=== PATIENT | female | born 1955 | race Caucasian/White ===

== ENCOUNTER → 2016-09-25 | Outpatient (CLI) | payer OTHER ==
--- NOTE | 2016-09-26 12:10 | MAMMOGRAPHY REPORT ---
BILATERAL DIGITAL SCREENING MAMMOGRAM TOMOSYNTHESIS WITH CAD: 09/25/2016 CLINICAL HISTORY: Routine screening. Patient has no complaints. TECHNIQUE: Breast tomosynthesis in addition to standard 2D mammography was performed. Current study was also evaluated with a Computer Aided Detection (CAD) system. COMPARISON: Comparison is made to exams dated: 09/21/2015 mammogram, 07/27/2014 mammogram, 07/21/2013 m ammogram, 07/15/2012 mammogram, 07/10/2011 mammogram, and 07/04/2010 mammogram - [facility] [place]. BREAST COMPOSITION: There are scattered areas of fibroglandular density in both breasts. FINDINGS: There are stable intramammary lymph nodes in each upper outer quadrant. No suspicious mas s, architectural distortion or cluster of microcalcifications is seen. IMPRESSION: ACR BI-RADS CATEGORY 1: NEGATIVE There is no mammographic evidence of malignancy. A 1 year screening mammogram is recommended. The pa tient will receive written notification of the results. Approximately 10% of breast cancers are not detected with mammography. A negative mammographic report should not delay biopsy if a clinically suggestive mass is present. Shanika Rollins M.D. ay/:09/25/2016 16:38:41 Visitor Services Specialist: Margarette LOPEZ(R)(M), [facility] letter sent: Normal 1/2 BI-RADS Code: ACR BI-RADS Category 1: Negative
== END | disposition home or self-care (01) ==
LOC: C.MAMM 15:52
PROVIDERS: ATTEND Obstetrics & Gynecology
DX: Z12.31 Encounter for screening mammogram for malignant neoplasm of breast (principal)

== ENCOUNTER → 2017-09-26 | Outpatient (CLI) | payer OTHER ==
--- NOTE | 2017-09-29 07:45 | MAMMOGRAPHY REPORT ---
BILATERAL DIGITAL SCREENING MAMMOGRAM TOMOSYNTHESIS WITH CAD: 09/26/2017 CLINICAL HISTORY: Routine screening. Patient has no complaints. TECHNIQUE: The study was acquired using full field digital technology and interpreted from soft copy. Breast tomosynthesis in addition to standard 2D mammography was performed. Current study was also ev aluated with a Computer Aided Detection (CAD) system. COMPARISON: Comparison is made to exams dated: 09/25/2016 mammogram, 09/21/2015 mammogram, 07/27/2014 m ammogram, 07/21/2013 mammogram, 07/15/2012 mammogram, and 07/10/2011 mammogram - [facility]. BREAST COMPOSITION: There are scattered areas of fibroglandular density in both breasts. FINDINGS: No suspicious masses, calcifications, or areas of architectural distortion are noted in either breast . There has been no significant interval change compared to prior exams. IMPRESSION: ACR BI-RADS CATEGORY 1: NEGATIVE There is no mammographic evidence of malignancy. A 1 year screening mammogram is recommended.( 019) The patient will receive written notification of the results. Some breast cancers are not detected with mammography. A negative mammographic report should not gurvinder y biopsy if a clinically suggestive mass is present. Gwen Robison M.D. ah/:09/26/2017 16:00:09 Department Store Door Greeter: RT Berenice(Marcos)(M)(BD), [facility] letter sent: Normal 1/2 BI-RADS Code: ACR BI-RADS Category 1: Negative
== END | disposition home or self-care (01) ==
LOC: C.MAMM 15:35
PROVIDERS: ATTEND Obstetrics & Gynecology
DX: Z12.31 Encounter for screening mammogram for malignant neoplasm of breast (principal)

== ENCOUNTER 2019-11-17 12:44 | Inpatient (IN) ==
[2019-11-17] MEDS ORDERED: ONDANSETRON INJ 2 MG/ML 2 ML VIAL IV STA ×2 (13:46→21:27)
--- NOTE | 2019-11-17 13:50 | Emergency Department Note ---
Impression & Plan RLQ abdominal pain, Right groin hernia, Nausea ED Provider Note NAME: PARISH JOSE AGE: 63 SEX: F : 1955 ARRIVES VIA: Walk-In INFORMANT: [Patient][, ] ED PROVIDER(S): [Leif Arreola MD] CHIEF COMPLAINT: Right lower quadrant abdominal pain HISTORY OF PRESENT ILLNESS: The patient is a 63-year-old female who presents with the sudden onset of right lower quadrant abdominal pain about 4 hours ago. She has had some nausea, no vomiting. She had a normal bowel movement this morning without difficulty. She has not had urinary complaints. There has been no fever, chills, cough or congestion. No known coronavirus exposures. She has not suffered trauma. She has never had this pain before. She rates the pain as an 8 on a scale 1 out of 10. The pain initially radiated to her back although, that is no longer the case. The pain is described as sharp and worse with movement. REVIEW OF SYSTEMS: See HPI for pertinent positives and negatives. A total of ten systems were reviewed and were otherwise negative. PMHx/PSHx: See Below SOCIAL HISTORY: See Below. PHYSICAL EXAM: GENERAL: Patient is in mild distress from pain. HEENT: No acute trauma, normocephalic atraumatic, mucous membranes moist, no nasal congestion, no scleral icterus. NECK: No stridor, no adenopathy, no meningismus, trachea is midline. LUNGS: Clear to auscultation bilaterally, no wheeze, no rhonchi, breath sounds equal. HEART: Without murmurs gallops or rubs, regular rate and rhythm. ABDOMEN: Soft, moderately tender in the right lower quadrant, bowel sounds posit mike, she has a 3 to 4 cm fullness in the right inguinal region which is quite tender and possibly consistent with a hernia. EXTREMITIES: No cyanosis or edema, full range of motion of all the joints wi thout pain or difficulty, no signs for acute trauma. NEUROLOGIC: Oriented x 3, no acute motor or sensory deficits, no focal weakness. SKIN: No rash, no jaundice, no diaphoresis. Back: No flank discomfort with percussion. DIFFERENTIAL DIAGNOSIS: Appendicitis, ovarian cyst, ovarian torsion, infections, diverticulitis, UTI, obstruction, mesenteric ischemia, aortic pathology, inflammatory bowel disease, renal colic, PUD, pancreatitis, biliary pathology, hernia, volvulus, con stipation, as well as other pathologies. EMERGENCY DEPARTMENT COURSE/PROCEDURES: MEDICAL DECISION MAKING: There is no leukocytosis or concerning anemia. There is a normal platelet count. No significant electrolyte abnormality or kidney failure. No worrisome liver enzyme elevation. No evidence for pancreatitis. Urinalysis did not show any evidence for infection. Abdominal and pelvis CT shows a right inguinal hernia with a loop of bowel caught. There is a developing small bowel obstruction. There is no evidence for appendicitis. On exam, the patient was tender in the right lower quadrant. She did have a fullness in the right inguinal region which would correspond to the findings on CT. The patient received IV saline for hydration. She was given IV morphine for pain, IV Zofran for nausea. She was eventually given a dose of IV Dilaudid for pain. The patient is aware of her findings, her is aware as well. I did speak with the corrections caseworker. General surgery has been consulted. Past Med/Surg History Medical History GERD (gastroesophageal reflux disease) Social History Smoking Status: Never smoker Feels Safe at Home: Yes Allergies Allergies Allergy/AdvReac Type Severity Reaction Status Date / Time Lactobacillus acidophilus Allergy Severe Hives Unverified 11/17/19 14:56 [From Floranex] Lactobacillus bulgaricus Allergy Severe Hives Unverified 11/17/19 14:56 [From Floranex] itraconazole Allergy Unknown HIVES Verified 04/14/09 04:35 Home Meds Home Medications Medication Instructions Recorded Confirmed Lactobacillus acidophilus 0 cell PO QAM 11/17/19 11/17/19 [Probiotic] bupropion HCl 150 mg PO DAILY 11/17/19 11/17/19 furosemide 20 mg PO UD PRN 11/17/19 11/17/19 loratadine 10 mg PO HS PRN 11/17/19 11/17/19 melatonin 0 mg PO HS PRN 11/17/19 11/17/19 montelukast 10 mg PO HS 11/17/19 11/17/19 omeprazole 20 mg PO DAILY 11/17/19 11/17/19 potassium chloride 10 meq PO UD PRN 11/17/19 11/17/19 Results & Data (ED) Vital Signs Vital Signs - 24 hr 11/17/19 13:00 11/17/19 14:50 11/17/19 15:52 Temperature 36.8 C Temperature Source Oral Pulse Rate 69 Pulse Rate [Apical] 57 L 64 Respiratory Rate 18 12 18 Respiratory Effort / Characteristics Non-Labored Spontaneous Respiratory Depth Normal Blood Pressure 125/87 Blood Pressure [Left Arm] 147/73 H 132/85 Blood Pressure Mean 99 Blood Pressure Mean [Left Arm] 97 100 Pulse Oximetry 99 100 99 Oxygen Delivery Method Room Air Room Air Room Air Sepsis Recent Fever Within 48 Hours No Sepsis New/Unexplained Change in Mental Status No Sepsis Action Taken by Nursing No Action Required Home Medications Current Medication List: was personally reviewed by me Laboratory Data Attestation: I reviewed the patient's lab results. Result diagrams: 11/17/19 14:06 11/17/19 14:06 Lab Results 11/17/19 11/17/19 11/17/19 Range/Units 14:06 14:06 14:11 WBC 7.31 (4.8-10.8) K/uL RBC 4.97 (4.2-5.4) M/uL Hgb 15.4 (12.0-16.0) g/dL Hct 44.9 (37-47) % MCV 90.3 (80-100) fL MCH 31.0 (25-34) pg MCHC 34.3 (32-36) g/dL RDW Std Deviation 41.7 (36.4-46.3) fL RDW Coeff of Kaveh 12.7 (11.5-14.5) % Plt Count 290 (130-400) K/uL MPV 10.3 (7.4-10.4) fL Immature Gran % (Auto) 0.1 % Neut % (Auto) 69.4 % Lymph % (Auto) 20.8 % [place] % (Auto) 8.2 % Eos % (Auto) 1.2 % Baso % (Auto) 0.3 % Neut # (Auto) 5.07 (1.4-6.5) K/uL Lymph # (Auto) 1.52 (1.2-3.4) K/uL [place] # (Auto) 0.60 H (0.11-0.59) K/uL Eos # (Auto) 0.09 (0-0.5) K/uL Baso # (Auto) 0.02 (0-0.2) K/uL Immature Gran # (Auto) 0.01 (0.00-0.02) K/uL Sodium 141 (136-145) mmol/L Potassium 3.7 (3.5-5.1) mmol/L Chloride 110 H (98-107) mmol/L Carbon Dioxide 26 (21-32) mmol/L Anion Gap 5.0 (3-11) BUN 29 H (7-18) mg/dl Creatinine 0.74 (0.6-1.2) mg/dl Est Cr Clr Drug Dosing Not Reportable Est GFR ( Amer) 100.6 Est GFR (Non-Af Amer) 86.8 BUN/Creatinine Ratio 39.2 H (10-20) Glucose 118 H (70-99) mg/dl Calcium 9.3 (8.5-10.1) mg/dl Total Bilirubin 0.4 (0.2-1) mg/dl AST 14 L (15-37) U/L ALT 37 (12-78) U/L Alkaline Phosphatase 81 (45-117) U/L Total Protein 7.5 (6.4-8.2) gm/dl Albumin 3.9 (3.4-5.0) gm/dl Globulin 3.6 (2.5-4.0) gm/dl Albumin/Globulin Ratio 1.1 (0.9-2) Lipase 105 (73-393) U/L Urine Color Yellow Urine Appearance Clear (Clear) Urine pH 8.5 H (4.5-7.5) Ur Specific [place] 1.018 (1.000-1.030) Urine Protein Negative (Negative) Urine Glucose (UA) Negative (Negative) Urine Ketones 1+ H (Negative) Urine Blood Negative (Negative) Urine Nitrite Negative (Negative) Urine Bilirubin Negative (Negative) Urine Urobilinogen Negative (Negative) Ur Leukocyte Esterase Negative (Negative) COVID-19 Eval Order 11/17/19 Range/Units 17:15 WBC (4.8-10.8) K/uL RBC (4.2-5.4) M/uL Hgb (12.0-16.0) g/dL Hct (37-47) % MCV (80-100) fL MCH (25-34) pg MCHC (32-36) g/dL RDW Std Deviation (36.4-46.3) fL RDW Coeff of Kaveh (11.5-14.5) % Plt Count (130-400) K/uL MPV (7.4-10.4) fL Immature Gran % (Auto) % Neut % (Auto) % Lymph % (Auto) % [place] % (Auto) % Eos % (Auto) % Baso % (Auto) % Neut # (Auto) (1.4-6.5) K/uL Lymph # (Auto) (1.2-3.4) K/uL [place] # (Auto) (0.11-0.59) K/uL Eos # (Auto) (0-0.5) K/uL Baso # (Auto) (0-0.2) K/uL Immature Gran # (Auto) (0.00-0.02) K/uL Sodium (136-145) mmol/L Potassium (3.5-5.1) mmol/L Chloride (98-107) mmol/L Carbon Dioxide (21-32) mmol/L Anion Gap (3-11) BUN (7-18) mg/dl Creatinine (0.6-1.2) mg/dl Est Cr Clr Drug Dosing Est GFR ( Amer) Est GFR (Non-Af Amer) BUN/Creatinine Ratio (10-20) Glucose (70-99) mg/dl Calcium (8.5-10.1) mg/dl Total Bilirubin (0.2-1) mg/dl AST (15-37) U/L ALT (12-78) U/L Alkaline Phosphatase (45-117) U/L Total Protein (6.4-8.2) gm/dl Albumin (3.4-5.0) gm/dl Globulin (2.5-4.0) gm/dl Albumin/Globulin Ratio (0.9-2) Lipase (73-393) U/L Urine Color Urine Appearance (Clear) Urine pH (4.5-7.5) Ur Specific [place] (1.000-1.030) Urine Protein (Negative) Urine Glucose (UA) (Negative) Urine Ketones (Negative) Urine Blood (Negative) Urine Nitrite (Negative) Urine Bilirubin (Negative) Urine Urobilinogen (Negative) Ur Leukocyte Esterase (Negative) COVID-19 Eval Order Covid19 Done at [facility] Administered Medications Morphine Sulfate (Morphine Sulfate 4 Mg/Ml 1 Ml Carp\Vial) 4 mg IV Q15M PRN PRN Reason: Pain Stop: 12/01/19 13:45 Last Admin: 11/17/19 14:59 Dose: 4 mg Documented by: [id number] Admin: 11/17/19 14:08 Dose: 4 mg Documented by: [id number] Discontinued Medications Hydromorphone HCl (Hydromorphone Inj 0.5 Mg/0.5 Ml Syr) 0.5 mg IV NOW STA Stop: 11/17/19 15:39 Last Admin: 11/17/19 15:51 Dose: 0.5 mg Documented by: [id number] Sodium Chloride (Nss) 500 mls @ 999 mls/hr IV .Q31M JUANA Stop: 11/17/19 14:30 Last Infusion: 11/17/19 15:28 Dose: 0 mls/hr Documented by: [id number] Admin: 11/17/19 14:08 Dose: 999 mls/hr Documented by: [id number] Ioversol (Ioversol 100ml) 94 ml IV ONCE ONE Stop: 11/17/19 15:08 Last Admin: 11/17/19 15:08 Dose: 94 ml Documented by: [id number] Ondansetron HCl (Ondansetron Inj 2 Mg/Ml 2 Ml Vial) 4 mg IV NOW STA Stop: 11/17/19 13:47 Last Admin: 11/17/19 14:08 Dose: 4 mg Documented by: [id number] Imaging Data Radiologist's Impression: CT SCAN OF THE ABDOMEN AND PELVIS WITH IV CONTRAST CLINICAL HISTORY: Right lower quadrant abdominal pain. COMPARISON STUDY: No priors. TECHNIQUE: Following the IV administration of 94 cc of Optiray 320, CT scan of the abdomen and pelvis is performed from the lung bases to the proximal femora. Images are reviewed in the axial, sagittal, and coronal planes. IV contrast was administered without complication. A dose lowering technique was utilized adhering to the principles of ALARA. CT DOSE: 429.27 mGy.cm FINDINGS: Lung bases: The heart is normal in size and without pericardial effusion. A calcified granuloma is noted at the left lung base. The lung bases are otherwise clear. Liver: The contrast-enhanced liver is normal in size, contour, and attenuation. There is no intrahepatic biliary ductal dilatation. The hepatic veins and portal veins are patent. Gallbladder: Unremarkable. Spleen: Normal in size and attenuation. Pancreas: Unremarkable. Adrenal glands: Unremarkable. Kidneys: The contrast enhanced kidneys are normal in size and without hydronephrosis. The kidneys enhance symmetrically. Bilateral renal cysts measure up to 2.9 cm. Additional subcentimeter cortical hypodensities also likely represent cysts but are too small for definitive characterization. There is a 6 mm nonobstructing left renal calculus. A punctate nonobstructing calculus is noted in the right kidney. Abdominal vasculature: The abdominal aorta is normal in course and caliber noting mild atherosclerotic calcification. Bowel: There are scattered colonic diverticula without CT evidence of acute diverticulitis. The loop of small bowel is contained within a right inguinal hernia. The distal small bowel is decompressed and the proximal/upstream small bowel is mildly distended and fluid-filled measuring up to 3 cm in diameter. This indicates developing bowel obstruction. Mild fecal retention is seen throughout the colon. The appendix is well-visualized and normal. Peritoneum: There is no intraperitoneal free air or abdominal ascites. Lymphadenopathy: None. Pelvic viscera: The bladder is normal as visualized. The uterus is surgically absent. No adnexal lesion is seen. A presumed sacropexy is noted in the central pelvis. There are numerous pelvic phleboliths. Skeletal structures: The skeletal structures are osteopenic. There are bilateral pars defects at L5. Mild lumbosacral spondylosis is observed. No lytic or blastic lesions are seen. IMPRESSION: 1. There is a loop of small bowel contained within a right inguinal hernia with developing small bowel obstruction. 2. The appendix is well-visualized and normal. 3. Bilateral nephrolithiasis. 4. Additional findings as above. Blood Pressure Blood Pressure Findings: Elevated blood pressure Blood Pressure Disposition: further management by hospitalist Discharge Plan Visit Data Chief Complaint: Abdominal Pain Stated Complaint: ABD PAIN,NAUSEA ED Provider: Leif Arreola Discharge Problem: RLQ abdominal pain, Right groin hernia, Nausea Patient Disposition: Admitted As Inpatient Condition: Good Forms Stand Alone Forms: [employer] Prescriptions Prescriptions: No Action potassium chloride 10 mEq capsule, extended release 10 meq PO UD PRN (Reason: See Comment) RF: 0 omeprazole 20 mg capsule,delayed release(DR/EC) 20 mg PO DAILY RF: 0 montelukast 10 mg tablet 10 mg PO HS RF: 0 furosemide 20 mg tablet 20 mg PO UD PRN (Reason: Edema) RF: 0 loratadine 10 mg Tablet 10 mg PO HS PRN (Reason: Allergy Symptoms) RF: 0 bupropion HCl 150 mg tablet extended release 24 hr 150 mg PO DAILY RF: 0 melatonin 5 mg Tablet 0 mg PO HS PRN (Reason: Sleep) RF: 0 Probiotic 10 billion cell Capsule 0 cell PO QAM RF: 0 Referrals Referrals: Larisa Trevino PA-C [Primary Care Provider] -
[2019-11-17] MEDS ORDERED: SODIUM CHLORIDE 0.9% 500 ML IV SCH (14:00)
[2019-11-17] MEDS: MoRPHine SULFATE 4 MG/ML 1 ML CARP\\VIAL IV PRN ×2 (14:08→14:59)
[2019-11-17 14:14] LABS: Basophils # (auto) 0.02 K/uL (0-0.2); Basophils % (auto) 0.3 %; Eosinophils # (auto) 0.09 K/uL (0-0.5); Eosinophils % (auto) 1.2 %; Hematocrit (blood only) 44.9 % (37-47); Hemoglobin 15.4 g/dL (12.0-16.0); Immature Granulocytes # (auto) 0.01 K/uL (0.00-0.02); Immature Granulocytes % (auto) 0.1 %; Lymphocytes # (auto) 1.52 K/uL (1.2-3.4); Lymphocytes % (auto) 20.8 %; Mean Corpuscular Hgb Conc 34.3 g/dL (32-36); Mean Corpuscular Volume 90.3 fL (80-100); Mean Platelet Volume 10.3 fL (7.4-10.4); Monocytes % (auto) 8.2 %; Neutrophils # (auto) 5.07 K/uL (1.4-6.5); Neutrophils % (auto) 69.4 %; Platelet Count 290 K/uL (130-400); RDW Coefficient of Variation 12.7 % (11.5-14.5); RDW Standard Deviation 41.7 fL (36.4-46.3); Red Blood Count 4.97 M/uL (4.2-5.4); White Blood Count 7.31 K/uL (4.8-10.8)
[2019-11-17 14:33] LABS: Alanine Aminotransferase 37 U/L (12-78); Albumin Level 3.9 gm/dl (3.4-5.0); Aspartate Aminotransferase 14 U/L (15-37); BUN Creatinine Ratio 39.2 (10-20); Blood Urea Nitrogen 29 mg/dl (7-18); Calcium 9.3 mg/dl (8.5-10.1); Carbon Dioxide 26 mmol/L (21-32); Chloride 110 mmol/L (98-107); Est GFR (African American) 100.6; Est GFR (Non-African American) 86.8; Glucose 118 mg/dl (70-99); Lipase 105 U/L (73-393); Potassium 3.7 mmol/L (3.5-5.1); Sodium 141 mmol/L (136-145)
[2019-11-17 14:35] LABS: Albumin Globulin Ratio 1.1 (0.9-2); Alkaline Phosphatase 81 U/L (45-117); Bilirubin,Total 0.4 mg/dl (0.2-1); Globulin 3.6 gm/dl (2.5-4.0); Total Protein 7.5 gm/dl (6.4-8.2)
[2019-11-17 14:36] LABS: Appearance Urine Clear (Clear); Bilirubin Urine Negative (Negative); Blood Urine Negative (Negative); Color Urine Yellow; Glucose Urine UA Negative (Negative); Ketones Urine 1+ (Negative); Leukocyte Esterase Urine Negative (Negative); Nitrite Urine Negative (Negative); Protein Urine Negative (Negative); Specific Gravity Urine 1.018 (1.000-1.030); Urobilinogen Urine Negative (Negative); pH Urine 8.5 (4.5-7.5)
[2019-11-17] MEDS ORDERED: IOVERSOL 100ml IV ONE (15:07)
--- NOTE | 2019-11-17 15:29 | CT Scan Report ---
CT SCAN OF THE ABDOMEN AND PELVIS WITH IV CONTRAST CLINICAL HISTORY: Right lower quadrant abdominal pain. COMPARISON STUDY: No priors. TECHNIQUE: Following the IV administration of 94 cc of Optiray 320, CT scan of the abdomen and pelvi s is performed from the lung bases to the proximal femora. Images are reviewed in the axial, sagittal , and coronal planes. IV contrast was administered without complication. A dose lowering technique wa s utilized adhering to the principles of ALARA. CT DOSE: 429.27 mGy.cm FINDINGS: Lung bases: The heart is normal in size and without pericardial effusion. A calcified granuloma is no meme at the left lung base. The lung bases are otherwise clear. Liver: The contrast-enhanced liver is normal in size, contour, and attenuation. There is no intrahepa tic biliary ductal dilatation. The hepatic veins and portal veins are patent. Gallbladder: Unremarkable. Spleen: Normal in size and attenuation. Pancreas: Unremarkable. Adrenal glands: Unremarkable. Kidneys: The contrast enhanced kidneys are normal in size and without hydronephrosis. The kidneys enh ance symmetrically. Bilateral renal cysts measure up to 2.9 cm. Additional subcentimeter cortical hyp odensities also likely represent cysts but are too small for definitive characterization. There is a 6 mm nonobstructing left renal calculus. A punctate nonobstructing calculus is noted in the right kid zelaelm. Abdominal vasculature: The abdominal aorta is normal in course and caliber noting mild atheroscleroti c calcification. Bowel: There are scattered colonic diverticula without CT evidence of acute diverticulitis. The loop of small bowel is contained within a right inguinal hernia. The distal small bowel is decompressed an d the proximal/upstream small bowel is mildly distended and fluid-filled measuring up to 3 cm in diam eter. This indicates developing bowel obstruction. Mild fecal retention is seen throughout the colon. The appendix is well-visualized and normal. Peritoneum: There is no intraperitoneal free air or abdominal ascites. Lymphadenopathy: None. Pelvic viscera: The bladder is normal as visualized. The uterus is surgically absent. No adnexal lesi on is seen. A presumed sacropexy is noted in the central pelvis. There are numerous pelvic phlebolith s. Skeletal structures: The skeletal structures are osteopenic. There are bilateral pars defects at L5. Mild lumbosacral spondylosis is observed. No lytic or blastic lesions are seen. IMPRESSION: 1. There is a loop of small bowel contained within a right inguinal hernia with developing small marcin l obstruction. 2. The appendix is well-visualized and normal. 3. Bilateral nephrolithiasis. 4. Additional findings as above. ACT 112: Negative or not required by law. Electronically signed by: Leif Still M.D. 11/17/2019 3:28 PM
[2019-11-17] MEDS ORDERED: HYDROmorphone INJ 0.5 MG/0.5 ML SYR IV STA (15:38)
[2019-11-17] MEDS ORDERED: AMPICILLIN/SULBACTAM SOD 3,000 MG in 0.9 % SODIUM CHLORIDE 100 ML IV STA (16:21)
--- NOTE | 2019-11-17 16:25 | History & Physical Report ---
Date of Service November 17, 2019 Assessment & Plan (1) Right groin hernia: Incarcerated right inguinal hernia. Will plan for OR this evening. as above. +incarcerated RIH. will approach laparoscopically though may need to open. discussed options and risks ( bleeding/infection/infection of mesh, chronic pain,injury to an organ such as bowel/bladder/ureter etc..., dvt/pe/mi/cva etc....)questions answered. pt agreeable. will proceed with lap/poss open repair of incercarated RIH with mesh. History of Present Illness Primary Care Provider: Larisa Buttn 63 y/o female with right groin pain that began this morning shortly after waking up. Had some crackers around 11 AM, no N/V but pain continued. Allergies Allergy/AdvReac Type Severity Reaction Status Date / Time Lactobacillus acidophilus Allergy Severe Hives Unverified 11/17/19 14:56 [From Floranex] Lactobacillus bulgaricus Allergy Severe Hives Unverified 11/17/19 14:56 [From Floranex] itraconazole Allergy Unknown HIVES Verified 04/14/09 04:35 Home Medications Home Medications Medication Instructions Recorded Confirmed Type Lactobacillus acidophilus 0 cell PO QAM 11/17/19 11/17/19 History [Probiotic] bupropion HCl 150 mg PO DAILY 11/17/19 11/17/19 History furosemide 20 mg PO UD PRN 11/17/19 11/17/19 History loratadine 10 mg PO HS PRN 11/17/19 11/17/19 History melatonin 0 mg PO HS PRN 11/17/19 11/17/19 History montelukast 10 mg PO HS 11/17/19 11/17/19 History omeprazole 20 mg PO DAILY 11/17/19 11/17/19 History potassium chloride 10 meq PO UD PRN 11/17/19 11/17/19 History Past Med/Surg History Medical History GERD (gastroesophageal reflux disease) Social History Smoking Status: Never smoker Feels Safe at Home: Yes Review of Systems Constitutional: no fever and no chills Gastrointestinal: + abdominal pain and + nausea; no vomiting Physical Exam Constitutional: WD/WN, vitals as above Respiratory: normal respiratory effort, lungs clear to auscultation Cardiovascular: RRR, no murmur, no edema Gastrointestinal (Abdomen): Percussion/Palpation: + abdomen tender, + guarding (right inguinal hernia) and abdomen soft Skin: no rashes, warm and dry Results & Data Results & Data ([facility]) Vital Signs (Past 12 Hours) Vital Signs Temp Pulse Pulse Resp BP BP Pulse Ox 11/17/19 15:52 64 18 132/85 99 11/17/19 14:50 57 L 12 147/73 H 100 11/17/19 13:00 36.8 C 69 18 125/87 99 PG Care Time/CCT Total # of Minutes Spent Total Time Spent with Patient: Total time spent is greater than 50% in coord ination of care (as documented) at patient's floor/unit and/or counseling patient: Coding Level of Care Code 81893 OBS Care - Level 3 Diagnoses Right groin hernia K40.90
[2019-11-17] MEDS ORDERED: LACTATED RINGER'S 1,000 ML IV SCH (16:30)
[2019-11-17] MEDS ORDERED: ceFAZolin 2000MG 2,000 MG/15 ML SYR IV SCH (16:30)
[2019-11-17] MEDS ORDERED: EPINEPHrine INJ 1 MG/ML AMP ONE (18:06)
[2019-11-17] MEDS ORDERED: BUPIVACAINE 0.5 % 5 MG/1 ML MPF 30ML VIAL ONE (18:07)
--- NOTE | 2019-11-17 18:11 | Anesthesiology Consultation ---
Date of Service November 17, 2019 Assessment & Plan Chart Review Chart Review: Acceptable Risk for Surgery and Patient NOT seen in Pre Admission Testing Consults Requested none ASA ASA2E Proposed Anesthesia Anesthesia Type: General History Surgery Operation Date: 11/17/19 14:40 Proposed Procedures p Laparoscopic Repair of Incarcerated Right Inguinal Hernia, Possible Open - Donovan Price, DO Height/Weight Weight: 79.5 kg Allergies Allergy/AdvReac Type Severity Reaction Status Date / Time Lactobacillus acidophilus Allergy Severe Hives Unverified 11/17/19 14:56 [From Floranex] Lactobacillus bulgaricus Allergy Severe Hives Unverified 11/17/19 14:56 [From Floranex] itraconazole Allergy Unknown HIVES Verified 04/14/09 04:35 Medications Home Medications Medication Instructions Recorded Confirmed Last Taken Lactobacillus acidophilus 0 cell PO QAM 11/17/19 11/17/19 Unknown [Probiotic] bupropion HCl 150 mg PO DAILY 11/17/19 11/17/19 11/17/19 furosemide 20 mg PO UD PRN 11/17/19 11/17/19 Unknown loratadine 10 mg PO HS PRN 11/17/19 11/17/19 Unknown melatonin 0 mg PO HS PRN 11/17/19 11/17/19 Unknown montelukast 10 mg PO HS 11/17/19 11/17/19 Unknown omeprazole 20 mg PO DAILY 11/17/19 11/17/19 11/17/19 potassium chloride 10 meq PO UD PRN 11/17/19 11/17/19 Unknown Active Medications Generic Name Dose Route Start Last Admin Trade Name Freq PRN Reason Stop Dose Admin Lactated Ringer's 1,000 mls @ 125 mls/hr 11/17/19 16:30 11/17/19 18:08 Lr IV 12/17/19 16:29 125 mls/hr .Q8H JUANA Administration Cefazolin Sodium 2,000 mg in 15 mls @ 3.75 mls/min 11/17/19 16:30 11/17/19 18:08 Ancef 2000mg IV 11/17/19 19:00 3.75 mls/min TODAY@1630 JUANA Administration Morphine Sulfate 4 mg 11/17/19 13:46 11/17/19 14:59 Morphine Sulfate 4 Mg/Ml 1 Ml Carp\Vial IV 12/01/19 13:45 4 mg Q15M PRN Administration Pain Past Medical History Medical History GERD (gastroesophageal reflux disease) Exercise / Class Metabolic Activity II 4-5 Yardwork/Stairs/Walk up hill Past Anesthesia History No Hx of Anesthesia Complications and No Family Hx of Anesthesia Complications History of PONV No Hx of PONV and No Hx of Motion Sickness Social History Smoking Status: Never smoker Physical Exam Vital Signs Last Vital Signs Temp 36.8 C 11/17/19 13:00 Pulse 57 L 11/17/19 17:50 Resp 12 11/17/19 17:31 BP 119/67 11/17/19 17:30 Pulse Ox 96 11/17/19 17:50 Testing Laboratory Results 11/17/19 14:06 11/17/19 14:06 Urine Color Yellow 11/17/19 14:11 Urine Appearance Clear (Clear) 11/17/19 14:11 Urine pH 8.5 (4.5-7.5) H 11/17/19 14:11 Ur Specific Strong 1.018 (1.000-1.030) 11/17/19 14:11 Urine Protein Negative (Negative) 11/17/19 14:11 Urine Glucose (UA) Negative (Negative) 11/17/19 14:11 Urine Ketones 1+ (Negative) H 11/17/19 14:11 Urine Nitrite Negative (Negative) 11/17/19 14:11 Ur Leukocyte Esterase Negative (Negative) 11/17/19 14:11
--- NOTE | 2019-11-17 19:03 | Communication Note ---
Date of Service: November 17, 2019 covid test is negative
[2019-11-17] MEDS ORDERED: fentaNYL citrate 100 MCG/2 ML VIAL ONE ×2 (19:21→21:36)
[2019-11-17] MEDS ORDERED: GLYCOPYRROLATE 0.2 MG/ML VIAL ONE (21:03)
[2019-11-17] MEDS ORDERED: NEOSTIGMINE METHYLSULFATE 5 MG/5 ML SYR ONE (21:03)
[2019-11-17] MEDS ORDERED: ONDANSETRON INJ 2 MG/ML 2 ML VIAL ONE ×2 (21:03→21:25)
[2019-11-17] MEDS ORDERED: PROPOFOL IV EMULSION 10 MG/ML 20 ML VIAL IV ONE (21:03)
[2019-11-17] MEDS ORDERED: SUCCINYLCHOLINE CHLORIDE 20 MG/ML 10 ML VIAL IV ONE (21:03)
[2019-11-17] MEDS ORDERED: KETOROLAC 30 MG/ML VIAL ONE (21:03)
[2019-11-17] MEDS ORDERED: ROCURONIUM BROMIDE 10 MG/ML 5 ML VIAL IV ONE (21:03)
[2019-11-17] MEDS ORDERED: ePHEDrine sulfate 50 MG/ML AMP ONE (21:09)
--- NOTE | 2019-11-17 21:35 | Operative Report ---
PG Post Operative Report Pre & Post Diagnosis Operation Date: 11/17/19 14:40 Pre-Op Diagnosis: Incarcerated Right Femoral Hernia Post-Op Diagnosis: Incarcerated Right Femoral Hernia; sbo I identified the patient and participated in the time-out.: Yes Procedure Operation Date: 11/17/19 14:40 Actual Procedures p Diagnostic Laparoscopy, Convert to Open Reducation of Small Bowel Obstruction; Repair of Incarcerated Right Femoral Hernia with Mesh(Right) - Donovan Price DO Surgeon Donovan Price DO Phlebotomy Specialist ashley Ar[place] Estimated Blood Loss 10 Findings Consistent with Post-Op Diagnosis Specimens none Description of Procedure After informed consent was obtained the patient was taken to the operating room and placed in supine position. After successful intubation a Patiño catheter was inserted sterilely and the entire abdomen down to the groin and upper thigh was sterilely prepped and draped in usual fashion. I began with a supraumbilical incision and carried this down through the soft tissue using cautery. The anterior rectus fascia was opened using cautery and two #0 Vicryl stay sutures were placed. Peritoneum was entered using blunt finger penetration and a 12 mm trocar was placed. The abdomen was insufflated to 20 mmHg. The laparoscope was inserted and the abdomen was examined in 360 degrees. A left mid abdominal 5 mm trocar and a left lower quadrant 5 mm trocar were placed under direct vision. The patient was placed in a Trendelenburg position and slightly air planed to the left. There was a very small right femoral hernia with severe small bowel incarceration. We tried pushing from the outside while providing gentle traction on the inside and were unable to reduce the bowel safely. I tried slightly extending the fascial defect with the sonocision however we were very close to the femoral vessels and this simply became too unsafe. At this point I converted to an open procedure. I made a right inguinal incision with a fresh blade and carried this down through the soft tissue using cautery. The external oblique aponeurosis was opened with a fresh blade and extended distally as well as proximally. The hernia had basically completely blown out the entire inguinal floor. I was able to open the the transversalis fascia as well as well as the peritoneal sac to identify very dark purple bowel. It was not perforated but at first it was not clear if it would be viable. I was able to extend the defect laterally and slightly inferior with my finger within the defect for protection. Once I did this I was then able to reduce the small bowel back into the abdominal cavity. This did not leave very good anatomy for repair. It was a very large circular defect with not much tissue and much of the tissue was already disrupted. I had to use the inguinal ligament and secure this to the Sreedhar's ligament distally/medially and then I ran the inguinal ligament and joined this to the conjoined tendon and transversalis fascia until I had the floor of the canal closed. Next I oversewed some fatty tissue over the femoral vessels to keep them covered and used a polypropylene plug to insert into the femoral defect. This mesh was secured again to Sreedhar's ligament medially and to the inguinal ligament medially/superiorly. Once this was then placed I thoroughly irrigated the wound multiple times. I then reapproximated the external oblique aponeurosis using 2-0 Vicryl in a running fashion. Soft tissue was irrigated and closed using 3-0 Vicryl in a running fashion and skin was closed using 4-0 Monocryl. We then re-insufflated the abdomen and reinserted the laparoscope. When we looked at the bowel it was pinking up and appeared to be potentially viable. At this point I used 3-0 Vicryl to close the peritoneum over the hernia defect internally. I ran the bowel and there was one little area that still was slightly ischemic however the serosa appeared to be thick and in good shape and the blood supply appeared to be improving in this area. I thoroughly irrigated the pelvis /there was adequate hemostasis. I opted at this point to not perform a bowel resection. No other abnormalities were identified. The trochars were all removed and the abdomen desufflated. The fascia of the camera port was closed using 0 Vicryl in a [id number] fashion. All 3 wounds were irrigated and closed using 4-0 Monocryl. Marcaine with epinephrine was injected around all the incisions for postoperative analgesia and skin glue was used as a dressing. The patient was awakened extubated transferred to recovery in stable condition. My physician security assistant was present for the entire case. He helped prep the patient. He helped run the camera as well as with wound retraction and exposure throughout my case as well as with wound closure and dressing placement. I attest to the content of the Intraoperative Record and any orders documented therein. Any exceptions are noted below.
[2019-11-17] MEDS: fentaNYL citrate 100 MCG/2 ML VIAL IV PRN ×2 (21:38→21:43)
[2019-11-17] MEDS ORDERED: ACETAMINOPHEN 1000 MG/100 ML IV IV ONE (21:49)
[2019-11-17] MEDS ORDERED: HYDROmorphone INJ 1 MG/ML SYRINGE ONE (21:49)
[2019-11-17] MEDS ORDERED: ACETAMINOPHEN 1,000 MG/100 ML VIAL IV STA (21:52)
[2019-11-17] MEDS ORDERED: HYDROmorphone INJ 0.5 MG/0.5 ML SYR IV PRN (21:53)
[2019-11-17] MEDS ORDERED: PROMETHAZINE HCL 6.25 MG in SODIUM CHLORIDE 0.9% 50 ML IV PRN (22:00)
[2019-11-17] MEDS ORDERED: ONDANSETRON INJ 2 MG/ML 2 ML VIAL IV PRN ×2 (22:00→22:38)
[2019-11-17] MEDS ORDERED: ePHEDrine sulfate 50 MG/ML AMP IV PRN (22:00)
[2019-11-17] MEDS ORDERED: ATROPINE SULFATE 0.1 MG/ML 10ML SYR IV PRN (22:00)
[2019-11-17] MEDS ORDERED: HYDROmorphone INJ 2 MG/ML SYR/VIAL IV PRN (22:00)
[2019-11-17] MEDS ORDERED: fentaNYL citrate 100 MCG/2 ML VIAL IV PRN (22:00)
--- NOTE | 2019-11-17 22:02 | Anesthesiology Progress Note ---
Date of Service November 17, 2019 Anesthesia Post Procedure Vital Signs Vital Signs: Temp Pulse Pulse Resp BP BP Pulse Ox 11/17/19 21:50 49 L 12 91/49 L 100 11/17/19 21:40 53 L 13 94/53 L 100 11/17/19 21:30 57 L 12 95/54 L 100 11/17/19 21:20 58 L 12 94/54 L 96 11/17/19 21:18 63 16 93/54 L 97 11/17/19 21:13 70 13 93/56 L 97 11/17/19 21:10 49 L 13 61/38 L 96 11/17/19 21:07 36.0 C L 52 L 14 62/41 L 95 11/17/19 18:32 36.8 C 60 18 119/71 97 11/17/19 17:50 57 L 96 11/17/19 17:40 58 L 97 11/17/19 17:31 47 L 12 98 11/17/19 17:30 46 L 119/67 99 11/17/19 17:20 54 L 21 99 11/17/19 17:17 58 L 14 112/66 99 11/17/19 17:16 53 L 15 11/17/19 16:50 58 L 98 11/17/19 16:40 65 17 98 11/17/19 16:30 62 15 99 11/17/19 16:20 54 L 14 99 11/17/19 16:10 58 L 13 99 11/17/19 16:00 63 15 97 11/17/19 15:52 61 64 14 132/85 132/85 100 11/17/19 15:51 57 L 11/17/19 15:40 64 16 91 11/17/19 15:30 56 L 98 11/17/19 15:20 61 11/17/19 14:51 45 L 15 147/73 H 99 11/17/19 14:50 47 L 57 L 15 147/73 H 100 11/17/19 14:40 47 L 11/17/19 14:30 45 L 11/17/19 14:20 47 L 11/17/19 14:18 50 L 12 11/17/19 13:00 36.8 C 69 18 125/87 99 Pain Intensity Abdomen: Pain Intensity: 8 Transfer of Care Handoff Completed per policy Notes Mental Status: alert / awake / arousable Patient Amnestic to Procedure: Yes Nausea / Vomiting: adequately controlled Pain: adequately controlled Airway Patency, RR, SpO2: stable & adequate BP & HR: stable & adequate Hydration State: stable & adequate Anesthetic Complications: no major complications apparent
[2019-11-17] MEDS: LACTATED RINGER'S 1,000 ML IV SCH (22:48)
[2019-11-18] MEDS: cefOXitin 2,000 MG in DEXTROSE 5% 50 ML IV SCH ×5 (00:26→22:17)
[2019-11-18] MEDS: MoRPHine SULFATE 4 MG/ML 1 ML CARP\\VIAL IV PRN ×2 (00:33→07:48)
[2019-11-18] MEDS: oxyCODONE HCL IR 5 MG TAB (IMMEDIATE RELEASE) PO PRN ×3 (03:18→19:43)
[2019-11-18] MEDS: LACTATED RINGER'S 1,000 ML IV SCH (03:18)
[2019-11-18 06:14] LABS: Hemoglobin 11.1 g/dL (12.0-16.0); Immature Granulocytes # (auto) 0.02 K/uL (0.00-0.02); Immature Granulocytes % (auto) 0.1 %; Lymphocytes # (auto) 0.66 K/uL (1.2-3.4); Lymphocytes % (auto) 4.6 %; Mean Corpuscular Hemoglobin 30.8 pg (25-34); Mean Corpuscular Hgb Conc 33.6 g/dL (32-36); Mean Corpuscular Volume 91.7 fL (80-100); Mean Platelet Volume 10.2 fL (7.4-10.4); Monocytes # (auto) 1.15 K/uL (0.11-0.59); Neutrophils # (auto) 12.52 K/uL (1.4-6.5); Neutrophils % (auto) 87.3 %; Platelet Count 286 K/uL (130-400); RDW Coefficient of Variation 12.8 % (11.5-14.5); RDW Standard Deviation 43.4 fL (36.4-46.3); White Blood Count 14.35 K/uL (4.8-10.8)
[2019-11-18 06:42] LABS: BUN Creatinine Ratio 42.3 (10-20); Calcium 8.4 mg/dl (8.5-10.1); Creatinine Clr Calc Pharmacy 97.5 ml/min; Est GFR (African American) 112.6; Est GFR (Non-African American) 97.2; Potassium 4.1 mmol/L (3.5-5.1)
[2019-11-18] MEDS: ACETAMINOPHEN 1,000 MG/100 ML VIAL IV SCH ×3 (07:06→20:59)
[2019-11-18] MEDS: buPROPion XL 150 MG TABCR PO SCH (07:43)
[2019-11-18] MEDS: D5W AND 1/2NSS 1,000 ML IV SCH ×2 (08:54→17:16)
--- NOTE | 2019-11-18 09:51 | Surgery Progress Note ---
Date of Service November 18, 2019 Assessment & Plan (1) Right groin hernia: pod 1 pt at high risk for ileus, will monitor progress not ready for d/c. keep npo for now increase activity. low threshold for KUB if her distension/nausea get worse. Admission and Anticipated Discharge Date Admission Date: November 17, 2019 Subjective pt seen. having some upper abdominal bloating and discomfort and mild nausea. no emesis. also some pain at right inguinal incision. Physical Exam Physical Exam: alert. nad incisions all intact. abd: slightly distended. no bs's. Results & Data ([facility]) Vital Signs (Past 12 Hours) Vital Signs Temp Pulse Pulse Resp BP BP Pulse Ox 11/18/19 06:06 80 97/62 L 11/18/19 06:00 63 18 97/61 L 98 11/18/19 05:52 37.3 C 62 16 86/53 L 96 11/18/19 03:20 36.9 C 60 15 93/57 L 96 11/18/19 01:30 36.9 C 62 16 92/55 L 98 11/18/19 00:34 95 11/18/19 00:30 37.0 C 60 16 94/60 L 96 11/17/19 23:30 36.4 C L 55 L 16 93/57 L 100 11/17/19 23:00 36.5 C 58 L 15 89/57 L 96 11/17/19 22:30 36.5 C 67 14 92/58 L 97 11/17/19 22:20 60 13 105/51 L 99 11/17/19 22:10 36.7 C 47 L 12 90/56 L 100 11/17/19 22:00 48 L 12 91/49 L 100 11/17/19 21:50 49 L 12 91/49 L 100 PG Care Time/CCT Total # of Minutes Spent Total Time Spent with Patient: Total time spent is greater than 50% in coordination of care (as documented) at patient's floor/unit and/or counseling patient: Coding Level of Care Code None Diagnoses Right groin hernia K40.90
[2019-11-18] MEDS ORDERED: HYDROmorphone INJ 1 MG/ML SYRINGE IV PRN (11:09)
[2019-11-18] MEDS ORDERED: HYDROmorphone INJ 0.5 MG/0.5 ML SYR IV PRN (11:09)
[2019-11-18] MEDS ORDERED: KETOROLAC TROMETHAMINE 15 MG/ML VIAL IV ONE (11:09)
--- NOTE | 2019-11-18 12:27 | XRay Report ---
KUB CLINICAL HISTORY: eval bowel pattern s/p inguinal hernia repair COMPARISON STUDY: CT of the abdomen and pelvis November 17, 2019, FINDINGS: Gas within the abdominal wall is likely from recent surgery. There is gas throughout small and large bowel. The small bowel loops measure up to 2.6 cm in caliber. There is no convincing eviden ce for a bowel obstruction IMPRESSION: 1. Gas throughout small and large bowel without evidence for a bowel obstruction. The findings may re flect a mild ileus. 2. Abdominal wall gas, likely from recent procedure. ACT 112: Negative or not required by law. Electronically signed by: Daniel Barillas M.D. 11/18/2019 12:26 PM
--- NOTE | 2019-11-18 18:56 | Electrocardiogram Report ---
Test Reason : Blood Pressure : / mmHG Vent. Rate : 050 BPM Atrial Rate : 050 BPM P-R Int : 162 ms QRS Dur : 102 ms QT Int : 468 ms P-R-T Axes : 045 025 042 degrees QTc Int : 426 ms Sinus bradycardia Otherwise normal ECG When compared with ECG of 22-JUN-2003 14:36, No significant change was found Confirmed by Tristan Villavicencio ([id number]) on 11/18/2019 6:55:29 PM Referred By: REFERRED SELF Confirmed By:Mark Anthony Villavicencio
[2019-11-18] MEDS: MONTELUKAST SODIUM 10 MG TABLET PO SCH (20:54)
[2019-11-18] MEDS ORDERED: COUGH DROP (SUGAR FREE) LOZ 24 LOZ/1 BOX BUCCAL ONE (20:58)
[2019-11-19] MEDS: D5W AND 1/2NSS 1,000 ML IV SCH (00:11)
[2019-11-19] MEDS: oxyCODONE HCL IR 5 MG TAB (IMMEDIATE RELEASE) PO PRN ×2 (01:53→10:02)
[2019-11-19] MEDS: cefOXitin 2,000 MG in DEXTROSE 5% 50 ML IV SCH ×4 (05:13→23:47)
[2019-11-19] MEDS: ACETAMINOPHEN 1,000 MG/100 ML VIAL IV SCH ×3 (05:50→22:31)
[2019-11-19 05:51] LABS: Basophils # (auto) 0.03 K/uL (0-0.2); Basophils % (auto) 0.4 %; Eosinophils # (auto) 0.15 K/uL (0-0.5); Eosinophils % (auto) 1.9 %; Hematocrit (blood only) 29.2 % (37-47); Hemoglobin 9.7 g/dL (12.0-16.0); Immature Granulocytes # (auto) 0.01 K/uL (0.00-0.02); Immature Granulocytes % (auto) 0.1 %; Lymphocytes # (auto) 1.26 K/uL (1.2-3.4); Lymphocytes % (auto) 16.3 %; Mean Corpuscular Hemoglobin 30.5 pg (25-34); Mean Corpuscular Hgb Conc 33.2 g/dL (32-36); Mean Corpuscular Volume 91.8 fL (80-100); Mean Platelet Volume 10.3 fL (7.4-10.4); Monocytes # (auto) 0.93 K/uL (0.11-0.59); Neutrophils # (auto) 5.35 K/uL (1.4-6.5); Neutrophils % (auto) 69.3 %; Platelet Count 243 K/uL (130-400); RDW Coefficient of Variation 13.1 % (11.5-14.5); RDW Standard Deviation 44.3 fL (36.4-46.3); Red Blood Count 3.18 M/uL (4.2-5.4); White Blood Count 7.73 K/uL (4.8-10.8)
[2019-11-19 06:24] LABS: BUN Creatinine Ratio 26.5 (10-20); Calcium 8.2 mg/dl (8.5-10.1); Creatinine Clr Calc Pharmacy 110.2 ml/min; Est GFR (African American) 117.2; Est GFR (Non-African American) 101.1; Potassium 3.3 mmol/L (3.5-5.1)
--- NOTE | 2019-11-19 07:42 | Surgery Progress Note ---
Date of Service November 19, 2019 Assessment & Plan (1) Right groin hernia: pod 2 doing better. bowel fx resuming will start clears d/c rodriguez increase acitivity d/c IVF hopeful d/c tomorrow or Friday [facility] covering for weekend. Admission and Anticipated Discharge Date Admission Date: November 17, 2019 Subjective pt seen. looks/feels better today. +flatus. no further nausea. pain improving. Physical Exam Physical Exam: alert. nad abd: soft. less distended. wounds look good. Results & Data ([facility]) Vital Signs (Past 12 Hours) Vital Signs Temp Pulse Resp BP BP Pulse Ox 11/19/19 07:32 36.7 C 70 16 94/58 L 94 11/18/19 23:39 36.8 C 62 16 121/65 94 PG Care Time/CCT Total # of Minutes Spent Total Time Spent with Patient: Total time spent is greater than 50% in coordination of care (as documented) at patient's floor/unit and/or counseling patient: Coding Level of Care Code None Diagnoses Right groin hernia K40.90
[2019-11-19] MEDS: buPROPion XL 150 MG TABCR PO SCH (09:01)
[2019-11-19] MEDS: PANTOprazole 40 MG TAB PO SCH (14:10)
[2019-11-19] MEDS: MONTELUKAST SODIUM 10 MG TABLET PO SCH (20:41)
[2019-11-20] MEDS: oxyCODONE HCL IR 5 MG TAB (IMMEDIATE RELEASE) PO PRN ×2 (04:25→19:45)
[2019-11-20] MEDS: cefOXitin 2,000 MG in DEXTROSE 5% 50 ML IV SCH ×4 (04:26→22:05)
[2019-11-20] MEDS: ACETAMINOPHEN 1,000 MG/100 ML VIAL IV SCH ×3 (05:22→21:28)
[2019-11-20 08:28] LABS: Basophils # (auto) 0.02 K/uL (0-0.2); Basophils % (auto) 0.3 %; Eosinophils # (auto) 0.31 K/uL (0-0.5); Eosinophils % (auto) 5.2 %; Hematocrit (blood only) 28.8 % (37-47); Hemoglobin 9.6 g/dL (12.0-16.0); Immature Granulocytes # (auto) 0.01 K/uL (0.00-0.02); Immature Granulocytes % (auto) 0.2 %; Lymphocytes # (auto) 1.06 K/uL (1.2-3.4); Lymphocytes % (auto) 17.9 %; Mean Corpuscular Hemoglobin 30.7 pg (25-34); Mean Corpuscular Hgb Conc 33.3 g/dL (32-36); Mean Platelet Volume 9.6 fL (7.4-10.4); Monocytes # (auto) 0.64 K/uL (0.11-0.59); Monocytes % (auto) 10.8 %; Neutrophils # (auto) 3.88 K/uL (1.4-6.5); Neutrophils % (auto) 65.6 %; Platelet Count 226 K/uL (130-400); RDW Coefficient of Variation 13.1 % (11.5-14.5); RDW Standard Deviation 44.1 fL (36.4-46.3); Red Blood Count 3.13 M/uL (4.2-5.4); White Blood Count 5.92 K/uL (4.8-10.8)
[2019-11-20 09:05] LABS: BUN Creatinine Ratio 20.6 (10-20); Calcium 8.1 mg/dl (8.5-10.1); Creatinine Clr Calc Pharmacy 104.4 ml/min; Est GFR (African American) 115.2; Est GFR (Non-African American) 99.4; Potassium 3.4 mmol/L (3.5-5.1)
[2019-11-20] MEDS: buPROPion XL 150 MG TABCR PO SCH (10:08)
[2019-11-20] MEDS: PANTOprazole 40 MG TAB PO SCH (10:08)
--- NOTE | 2019-11-20 11:02 | Surgery Progress Note ---
Date of Service November 20, 2019 Assessment & Plan (1) Right groin hernia: Postoperative day #3 status post reduction and repair of incarcerated right femoral hernia Peristalsis has returned nicely Feels much better Can advance to full liquid diet Encourage continued ambulation Admission and Anticipated Discharge Date Admission Date: November 17, 2019 Subjective Postoperative day #3 status post reduction and repair of incarcerated femoral hernia Patient feels much better today Has begun to pass a lot of flatus Denies nausea and vomiting Tolerated clear liquid diet Ambulating Physical Exam Gastrointestinal (Abdomen): Inspection/Auscultation: normal bowel sounds; abdomen not distended Percussion/Palpation: + abdomen tender (Incisional) and abdomen soft Has ecchymosis on the right lower lateral abdominal wall Results & Data ([facility]) Vital Signs (Past 12 Hours) Vital Signs Temp Pulse Resp BP Pulse Ox 11/20/19 08:00 36.7 C 66 16 98/62 L 96 Laboratory Results 11/20/19 11/20/19 Range/Units 08:18 08:18 WBC 5.92 (4.8-10.8) K/uL RBC 3.13 L (4.2-5.4) M/uL Hgb 9.6 L (12.0-16.0) g/dL Hct 28.8 L (37-47) % MCV 92.0 (80-100) fL MCH 30.7 (25-34) pg MCHC 33.3 (32-36) g/dL RDW Std Deviation 44.1 (36.4-46.3) fL RDW Coeff of Kaveh 13.1 (11.5-14.5) % Plt Count 226 (130-400) K/uL MPV 9.6 (7.4-10.4) fL Immature Gran % (Auto) 0.2 % Neut % (Auto) 65.6 % Lymph % (Auto) 17.9 % Schleicher % (Auto) 10.8 % Eos % (Auto) 5.2 % Baso % (Auto) 0.3 % Neut # (Auto) 3.88 (1.4-6.5) K/uL Lymph # (Auto) 1.06 L (1.2-3.4) K/uL Schleicher # (Auto) 0.64 H (0.11-0.59) K/uL Eos # (Auto) 0.31 (0-0.5) K/uL Baso # (Auto) 0.02 (0-0.2) K/uL Immature Gran # (Auto) 0.01 (0.00-0.02) K/uL Sodium 143 (136-145) mmol/L Potassium 3.4 L (3.5-5.1) mmol/L Chloride 111 H (98-107) mmol/L Carbon Dioxide 28 (21-32) mmol/L Anion Gap 4.0 (3-11) BUN 12 (7-18) mg/dl Creatinine 0.57 L (0.6-1.2) mg/dl Est Cr Clr Drug Dosing 104.4 ml/min Est GFR ( Amer) 115.2 Est GFR (Non-Af Amer) 99.4 BUN/Creatinine Ratio 20.6 H (10-20) Glucose 97 (70-99) mg/dl Calcium 8.1 L (8.5-10.1) mg/dl
[2019-11-20] MEDS: MONTELUKAST SODIUM 10 MG TABLET PO SCH (21:28)
[2019-11-21] MEDS: cefOXitin 2,000 MG in DEXTROSE 5% 50 ML IV SCH ×3 (06:00→16:02)
[2019-11-21] MEDS: oxyCODONE HCL IR 5 MG TAB (IMMEDIATE RELEASE) PO PRN ×2 (06:08→12:49)
[2019-11-21] MEDS: buPROPion XL 150 MG TABCR PO SCH (08:24)
[2019-11-21] MEDS: PANTOprazole 40 MG TAB PO SCH (08:24)
--- NOTE | 2019-11-21 10:43 | Surgery Progress Note ---
Date of Service November 21, 2019 Assessment & Plan (1) Right groin hernia: Postop day 4 status post repair of incarcerated right femoral hernia. Doing well Peristalsis has returned Tolerated full liquid diet so will advance to soft diet If she tolerates that can discharge this afternoon Continue ambulation Admission and Anticipated Discharge Date Admission Date: November 17, 2019 Subjective Postoperative day #4 status post repair of incarcerated femoral hernia Feels well today Having a burning sensation near the incision Denies nausea and vomiting Passing large amounts of flatus Has not had bowel movement yet Tolerated full liquid diet yesterday Ambulating Physical Exam Gastrointestinal (Abdomen): Inspection/Auscultation: normal bowel sounds and + abdominal surgical incision (Clean, dry and intact); abdomen not distended Percussion/Palpation: + abdomen tender (Incisional only) and abdomen soft Ecchymosis resolving Results & Data ([facility]) Vital Signs (Past 12 Hours) Vital Signs Temp Pulse Resp BP Pulse Ox 11/21/19 07:47 36.4 C L 62 16 97/60 L 95 11/20/19 22:45 36.9 C 62 16 102/57 L 96
[2019-11-21] MEDS ORDERED: ACETAMINOPHEN 325 MG TAB PO PRN (12:43)
[2019-11-21] MEDS ORDERED: NORCO 5/325MG HOMEPACK PO ONE (16:20)
--- NOTE | 2019-11-26 23:24 | Discharge Summary (DS) ---
ADMISSION DIAGNOSIS: Incarcerated right inguinal hernia. DISCHARGE DIAGNOSIS: Incarcerated right inguinal hernia. HOSPITAL COURSE: This is a patient who presented to [facility] Emergency Department on 11/17/2019 secondary to pain in her right groin. She presented to the Emergency Department and while in the Emergency Department she underwent a CT scan of the abdomen and pelvis that showed a small loop of bowel in a right inguinal hernia with concern for small-bowel obstruction. Because of this, Dr. Price took the patient to the operating room on the date of admission and he performed a repair of this right inguinal hernia. During patient's postoperative course, the patient did have an ileus, but this self resolved without any active intervention and she was discharged home in stable condition on 11/21/2019. She was provided with appropriate wound care, diet, and activity. She was told to call Dr. Price's office for followup appointment in 1-2 weeks.
== END 2019-11-21 17:54 | disposition home or self-care (01) | DRG 352 ==
LOC: ED 12:44 → OR 18:17 → 3E 21:36

== ENCOUNTER 2019-11-29 20:35 | Inpatient (IN) ==
[2019-11-29] MEDS ORDERED: ONDANSETRON INJ 2 MG/ML 2 ML VIAL IV STA (22:02)
[2019-11-29] MEDS ORDERED: SODIUM CHLORIDE 0.9% 1000ML 1,000 ML IV ONE (22:02)
[2019-11-29] MEDS ORDERED: HYDROmorphone INJ 0.5 MG/0.5 ML SYR IV STA (22:02)
[2019-11-29 22:25] LABS: Basophils # (auto) 0.04 K/uL (0-0.2); Basophils % (auto) 0.3 %; Eosinophils % (auto) 1.3 %; Hematocrit (blood only) 40.7 % (37-47); Hemoglobin 13.5 g/dL (12.0-16.0); Immature Granulocytes # (auto) 0.04 K/uL (0.00-0.02); Immature Granulocytes % (auto) 0.3 %; Lymphocytes # (auto) 1.29 K/uL (1.2-3.4); Lymphocytes % (auto) 8.7 %; Mean Corpuscular Hemoglobin 30.9 pg (25-34); Mean Corpuscular Hgb Conc 33.2 g/dL (32-36); Mean Corpuscular Volume 93.1 fL (80-100); Mean Platelet Volume 9.5 fL (7.4-10.4); Monocytes # (auto) 0.92 K/uL (0.11-0.59); Monocytes % (auto) 6.2 %; Neutrophils % (auto) 83.2 %; Platelet Count 410 K/uL (130-400); RDW Standard Deviation 46.8 fL (36.4-46.3); Red Blood Count 4.37 M/uL (4.2-5.4); White Blood Count 14.89 K/uL (4.8-10.8)
[2019-11-29 22:31] LABS: iSTAT Creatinine 0.7 mg/dl (0.6-1.3); iSTAT Hemoglobin 13.3 g/dl (12.0-16.0); iSTAT Ionized Calcium 1.17 mmol/l (1.12-1.32); iSTAT Potassium 3.9 mmol/L (3.3-5.0)
[2019-11-29] MEDS ORDERED: IOVERSOL 100ml IV ONE (22:38)
[2019-11-29 22:41] LABS: Albumin Level 3.3 gm/dl (3.4-5.0); BUN Creatinine Ratio 33.1 (10-20); Calcium 8.9 mg/dl (8.5-10.1); Creatinine Clr Calc Pharmacy 85.3 ml/min; Est GFR (African American) 106.9; Est GFR (Non-African American) 92.2; Potassium 3.8 mmol/L (3.5-5.1)
[2019-11-29 22:44] LABS: Albumin Globulin Ratio 0.9 (0.9-2); Bilirubin,Total 0.5 mg/dl (0.2-1); Globulin 3.6 gm/dl (2.5-4.0); Total Protein 6.9 gm/dl (6.4-8.2)
[2019-11-29 22:47] LABS: Appearance Urine Clear (Clear); Bacteria Urine Automated Negative (Negative); Bilirubin Urine Negative (Negative); Blood Urine Negative (Negative); Color Urine Yellow; Epithelial Cell Urine Auto 20-30 /lpf (0-5); Glucose Urine UA Negative (Negative); Ketones Urine Negative (Negative); Leukocyte Esterase Urine 2+ (Negative); Nitrite Urine Negative (Negative); Protein Urine Negative (Negative); RBC Urine Automated 0-4 /hpf (0-4); Urobilinogen Urine Negative (Negative); WBC Urine Automated >30 /hpf (0-5)
[2019-11-29] MEDS ORDERED: cefOXitin 2,000 MG/60 ML BAG IV STA (23:07)
--- NOTE | 2019-11-29 23:49 | History & Physical Report ---
Date of Service November 29, 2019 Assessment & Plan (1) Small bowel obstruction: -pt will be admitted to hospital with the following measures in place: -NPO status -hydration with IVF -provide analgesics -provide anti-emetics -PPI for GI prophylaxis -due to concern for enteritis will place on abx.--mefoxin -GI decompression with NGT -repeat KUB in am -follow serial labs -lovenox & SCDs for DVT prevention Dr. Centeno-patient seen in the emergency room-NG tube now in place draining clear gastric contents and some gas Patient's abdominal pain has subsided significantly, she has no distress, heart rate and pulse are normal Her abdomen is minimally distended and relatively soft with no evidence of peritoneal irritation-some tenderness to deep palpation In the lower abdomen. Her CT scan does show edematous small bowel in the pelvis with mild distention We will continue with bowel rest and antibiotics and check a C. difficile if specimen available-there is a possibility Of small bowel C. difficile enteritis. History of Present Illness Chief Complaint: Abdominal Pain Primary Care Provider: Larisa Trevino 64 year old female had a right incarcerated inguinal hernia repair on 11/17/19. She did not require resection of any bowel at the time of surgery. Her post op course was only complicated by an ileus and she was d/c home on 11/21/19. She was doing well until yesterday when she began to have waves of generalized abdominal pain that was non radiating and confined mostly to the upper abdomen. No provocative factors noted. Pain is relived with meds given in the ED. She had a BM earlier today and denies fevers, shakes, chills, or N/V. She called this provider and was instructed to go to the ED for evaluation. In the ED. WBC was noted to be elevated at 14K (was normal at time of d/c). Her lipase and LFTs, along with her electrolytes were normal. CT scan of the abdomen showed no free air, but concern for a SBO as well as enteritis was noted. At the time of my exam she was not in any distress. Allergies Allergy/AdvReac Type Severity Reaction Status Date / Time Lactobacillus acidophilus Allergy Severe Hives Unverified 11/29/19 23:08 [From Floranex] Lactobacillus bulgaricus Allergy Severe Hives Unverified 11/29/19 23:08 [From Floranex] itraconazole Allergy Unknown HIVES Verified 11/29/19 23:08 Home Medications Home Medications Medication Instructions Recorded Confirmed Type Probiotic 0 cell PO QAM 11/17/19 11/29/19 History bupropion HCl 150 mg PO DAILY 11/17/19 11/29/19 History furosemide 20 mg PO UD PRN 11/17/19 11/29/19 History loratadine 10 mg PO HS PRN 11/17/19 11/29/19 History melatonin 0 mg PO HS PRN 11/17/19 11/29/19 History montelukast 10 mg PO HS 11/17/19 11/29/19 History omeprazole 20 mg PO DAILY 11/17/19 11/29/19 History potassium chloride 10 meq PO UD PRN 11/17/19 11/29/19 History hydrocodone-acetaminophen [Biggs] 1 - 2 tab PO Q4H PRN #15 tab 11/18/19 11/29/19 Rx Past Med/Surg History Medical History (Updated 11/29/19 @ 23:47 by John Vasquez PA-C) GERD (gastroesophageal reflux disease) Incarcerated hernia Surgical History (Updated 11/29/19 @ 09:45 by Tabby Young RN) History of femoral hernia repair (11/17/19) Diagnostic Laparoscopy, Convert to Open Reducation of Small Bowel Obstruction; Repair of Incarcerated Right Femoral Hernia with Mesh Dr. Price 11/17/2019 History of foot operation History of hysterectomy Hx of tonsillectomy Social History Smoking Status: Never smoker Second Hand Exposure: No; Hx Alcohol Use: Yes Alcohol type: beer and wine Hx Substance Use: No Preferred Language: Lithuanian Communication Ability: Effective Community Center Worker Required: No Beliefs That Will Affect Care: None Current Living Situation: Spouse Feels Safe at Home: Yes Assistive Devices: Walker Review of Systems Constitutional: no fever, no chills and no sweats Eyes: no diplopia Ear, Nose, Mouth, Throat: no ear pain Respiratory: no cough and no dyspnea Cardiovascular: no chest pain Gastrointestinal: + abdominal pain; no nausea and no vomiting Genitourinary: no dysuria Musculoskeletal: no back pain Integumentary: no rash Neurologic: no localized weakness Physical Exam Constitutional: well developed and well nourished; no acute distress Eyes: no conjunctival abnormality ENMT: Ears: no hearing impairment Neck: trachea midline Respiratory: normal respiratory effort; no respiratory distress and no labored breathing Cardiovascular: Rate/Rhythm: regular rate and regular rhythm Gastrointestinal (Abdomen): slight distention with hypoactive BS noted. Abdomen is diffusely tender to palpation. No rebound tenderness. Abdomen is tympanic to percussion Musculoskeletal: no calf pain Skin: normal turgor Neurologic: moves all extremities Psychiatric: Orientation: alert and oriented x 3 Affect: + anxious affect Results & Data Results & Data ([facility]) Vital Signs (Past 12 Hours) Vital Signs Temp Pulse Resp BP Pulse Ox 11/29/19 22:50 79 18 97 11/29/19 22:49 77 15 106/65 95 11/29/19 22:44 80 12 97 11/29/19 22:21 97 11/29/19 20:50 36.9 C 107 H 20 107/72 97 Code Status & VTE Plan VTE Prophylaxis Plan VTE Prophylaxis will be ordered: Yes PG Care Time/CCT Total # of Minutes Spent Total Time Spent with Patient: Total time spent is greater than 50% in coordination of care (as documented) at patient's floor/unit and/or counseling patient: Coding Level of Care Code None Diagnoses Small bowel obstruction K56.609
[2019-11-29] MEDS ORDERED: LORazepam 0.5 MG/1 ML VIAL IV PRN (23:52)
[2019-11-30] MEDS ORDERED: PROMETHAZINE HCL 12.5 MG in SODIUM CHLORIDE 0.9% 50 ML IV PRN (00:46)
[2019-11-30] MEDS ORDERED: PROMETHAZINE HCL 25 MG in SODIUM CHLORIDE 0.9% 50 ML IV PRN (00:46)
[2019-11-30] MEDS ORDERED: ONDANSETRON INJ 2 MG/ML 2 ML VIAL IV PRN (00:46)
--- NOTE | 2019-11-30 01:35 | Emergency Department Note ---
History of Present Illness General Chief complaint: Abdominal Pain Stated complaint: ABD. PAIN, EMGNCY SURGERY LESS THAN 2 WKS AGO Source: patient, family and RN notes reviewed Mode of arrival: ambulatory Limitations: no limitations History of Present Illness Provider complaint: Abdominal pain Maximum Pain Intensity: 8 This patient is a 64-year-old female who presents emergency department with complaints of diffuse abdominal pain that intermittently worsens. She complains of an epigastric discomfort as well as a lower abdominal pain. She states less than 2 weeks ago she had an incarcerated right inguinal hernia with secondary small bowel obstruction. She had surgery with Dr. Price that she states was "complicated." Patient states she did have a postoperative ileus. She conta cted surgery this evening and was referred to the emergency department for evaluation. She denies any vomiting and states she did have a bowel movement earlier this evening. She denies any blood in the stools. She has not had a fever, cough or shortness of breath. Home Medications Home Medications Medication Instructions Recorded Confirmed Type Probiotic 0 cell PO QAM 11/17/19 11/29/19 History bupropion HCl 150 mg PO DAILY 11/17/19 11/29/19 History furosemide 20 mg PO UD PRN 11/17/19 11/29/19 History loratadine 10 mg PO HS PRN 11/17/19 11/29/19 History melatonin 0 mg PO HS PRN 11/17/19 11/29/19 History montelukast 10 mg PO HS 11/17/19 11/29/19 History omeprazole 20 mg PO DAILY 11/17/19 11/29/19 History potassium chloride 10 meq PO UD PRN 11/17/19 11/29/19 History hydrocodone-acetaminophen [[place]] 1 - 2 tab PO Q4H PRN #15 tab 11/18/19 11/29/19 Rx Allergies Allergy/AdvReac Type Severity Reaction Status Date / Time Lactobacillus acidophilus Allergy Severe Hives Unverified 11/29/19 23:08 [From Floranex] Lactobacillus bulgaricus Allergy Severe Hives Unverified 11/29/19 23:08 [From Floranex] itraconazole Allergy Unknown HIVES Verified 11/29/19 23:08 Past Med/Surg History Medical History GERD (gastroesophageal reflux disease) Incarcerated hernia Surgical History History of femoral hernia repair (11/17/19) Diagnostic Laparoscopy, Convert to Open Reducation of Small Bowel Obstruction; Repair of Incarcerated Right Femoral Hernia with Mesh Dr. Price 11/17/2019 History of foot operation History of hysterectomy Hx of tonsillectomy Social History Smoking Status: Never smoker Second Hand Exposure: No; Hx Alcohol Use: Yes Alcohol type: beer, wine and hard liquor Hx Substance Use: No Preferred Language: [place] Communication Ability: Effective Industrial Health Engineer Required: No Beliefs That Will Affect Care: None Current Living Situation: Spouse Feels Safe at Home: No Is there a partner from a previous relationship who is making you feel unsafe now?: No Assistive Devices: Glasses Review of Systems See HPI for pertinent positives & negatives. and A total of 10 systems reviewed and were otherwise negative Physical Exam Vital Signs Vital Signs - 24 hr 11/29/19 20:50 11/29/19 22:21 11/29/19 22:44 Temperature 36.9 C Temperature Source Oral Pulse Rate 107 H 80 Pulse Rate from SpO2 Sensor 79 Respiratory Rate 20 12 Respiratory Effort / Characteristics Non-Labored Spontaneous Respiratory Depth Normal Respiratory Pattern Regular Blood Pressure 107/72 Blood Pressure Mean 83 Pulse Oximetry 97 97 97 Oxygen Delivery Method Room Air Room Air Sepsis Recent Fever Within 48 Hours No Sepsis New/Unexplained Change in Mental Status N/A Sepsis Action Taken by Nursing No Action Required 11/29/19 22:49 11/29/19 22:50 Temperature Temperature Source Pulse Rate 77 79 Pulse Rate from SpO2 Sensor 75 80 Respiratory Rate 15 18 Respiratory Effort / Characteristics Respiratory Depth Respiratory Pattern Blood Pressure 106/65 Blood Pressure Mean 69 Pulse Oximetry 95 97 Oxygen Delivery Method Sepsis Recent Fever Within 48 Hours Sepsis New/Unexplained Change in Mental Status Sepsis Action Taken by Nursing Vital signs reviewed. General: Well-appearing 64 yo female, in some discomfort. HEENT: No scleral icterus, PERRLA, neck supple. Atraumatic. Cardiovascular: Regular rate and rhythm, no extra sounds. Pulmonary: Clear to auscultation bilaterally, normal work of breathing. Abdomen: Soft, mildly distended and diffusely tender. Positive tympany to percussion over upper abdomen. postsurgical change noted to the right inguinal region. Significant healing ecchymosis noted to the right flank, suprapubic regions. Musculoskeletal: Atraumatic, no peripheral edema. Neurologic: Patient awake alert and oriented x 3 Skin: Warm, dry, no rash Course Administered Medications Hydromorphone HCl (Hydromorphone Inj 0.5 Mg/0.5 Ml Syr) 0.5 mg IV Q3H PRN PRN Reason: Pain Stop: 12/14/19 00:45 Last Admin: 11/30/19 01:43 Dose: 0.5 mg Documented by: [id number] Lactated Ringer's (Lr) 1,000 mls @ 100 mls/hr IV .Q10H JUANA Stop: 12/30/19 00:45 Last Admin: 11/30/19 01:41 Dose: 100 mls/hr Documented by: [id number] Ondansetron HCl (Ondansetron Inj 2 Mg/Ml 2 Ml Vial) 4 mg IV [id number] PRN PRN Reason: Nausea Stop: 12/30/19 00:45 Last Admin: 11/30/19 01:50 Dose: 4 mg Documented by: [id number] Discontinued Medications Hydromorphone HCl (Hydromorphone Inj 0.5 Mg/0.5 Ml Syr) 0.5 mg IV NOW STA Stop: 11/29/19 22:03 Last Admin: 11/29/19 22:24 Dose: 0.5 mg Documented by: [id number] Sodium Chloride (Nss 1000ml) 1,000 mls @ 999 mls/hr IV .Q1H1M ONE Stop: 11/29/19 23:02 Last Infusion: 11/29/19 23:35 Dose: 0 mls/hr Documented by: [id number] Admin: 11/29/19 22:24 Dose: 999 mls/hr Documented by: [id number] Cefoxitin Sodium (Mefoxin) 2,000 mg in 60 mls @ 100 mls/hr IV NOW STA Stop: 11/29/19 23:42 Last Infusion: 11/30/19 00:47 Dose: 0 mls/hr Documented by: [id number] Admin: 11/29/19 23:58 Dose: 100 mls/hr Documented by: [id number] Ioversol (Ioversol 100ml) 94 ml IV ONCE ONE Stop: 11/29/19 22:39 Last Admin: 11/29/19 22:38 Dose: 94 ml Documented by: [id number] Ondansetron HCl (Ondansetron Inj 2 Mg/Ml 2 Ml Vial) 4 mg IV NOW STA Stop: 11/29/19 22:03 Last Admin: 11/29/19 22:24 Dose: 4 mg Documented by: [id number] Medical Decision Making Differential Diagnosis Differential diagnosis: Etiologies such as biliary colic, cholecystitis, hepatitis, perihepatitis, pa ncreatitis, cardiac disease, pancreatitis, gastritis, peptic ulcer disease, appendicitis, ovarian cyst, ovarian torsion, ectopic , pelvic inflammatory disease, cystitis, diverticulitis, mesenteric ischemia, inflammatory bowel disease, ileus, bowel obstruction, aortic pathology, shingles, as well as others were considered. Medical Records Attestation: I reviewed the patient's medical records. Home Medications Current Medication List: was personally reviewed by me Laboratory Data Attestation: I reviewed the patient's lab results. Result diagrams: 11/29/19 22:14 11/29/19 22:14 Lab Results 11/29/19 11/29/19 11/29/19 Range/Units 22:14 22:14 22:18 WBC 14.89 H (4.8-10.8) K/uL RBC 4.37 (4.2-5.4) M/uL Hgb 13.5 (12.0-16.0) g/dL POC Hgb 13.3 (12.0-16.0) g/dl Hct 40.7 (37-47) % POC Hct 39 (37-47) % MCV 93.1 (80-100) fL MCH 30.9 (25-34) pg MCHC 33.2 (32-36) g/dL RDW Std Deviation 46.8 H (36.4-46.3) fL RDW Coeff of Kaveh 14.0 (11.5-14.5) % Plt Count 410 H (130-400) K/uL MPV 9.5 (7.4-10.4) fL Immature Gran % (Auto) 0.3 % Neut % (Auto) 83.2 % Lymph % (Auto) 8.7 % [place] % (Auto) 6.2 % Eos % (Auto) 1.3 % Baso % (Auto) 0.3 % Neut # (Auto) 12.40 H (1.4-6.5) K/uL Lymph # (Auto) 1.29 (1.2-3.4) K/uL [place] # (Auto) 0.92 H (0.11-0.59) K/uL Eos # (Auto) 0.20 (0-0.5) K/uL Baso # (Auto) 0.04 (0-0.2) K/uL Immature Gran # (Auto) 0.04 H (0.00-0.02) K/uL POC Sodium 141 (135-144) mmol/L Sodium 141 (136-145) mmol/L POC Potassium 3.9 (3.3-5.0) mmol/L Potassium 3.8 (3.5-5.1) mmol/L POC Chloride 102 (101-112) mmol/L Chloride 106 (98-107) mmol/L Carbon Dioxide 28 (21-32) mmol/L POC Total CO2 27 (24-31) mmol/L Anion Gap 7.0 (3-11) POC Anion Gap 17.0 (16-25) mmol/L POC BUN 27 H (7-18) mg/dl BUN 23 H (7-18) mg/dl Creatinine 0.70 (0.6-1.2) mg/dl POC Creatinine 0.7 (0.6-1.3) mg/dl Est Cr Clr Drug Dosing 85.3 ml/min Est GFR ( Amer) 106.9 Est GFR (Non-Af Amer) 92.2 BUN/Creatinine Ratio 33.1 H (10-20) Glucose 116 H (70-99) mg/dl POC Glucose (other) 120 H (70-99) mg/dl Calcium 8.9 (8.5-10.1) mg/dl POC Ioniz Calcium Yfn 1.17 (1.12-1.32) mmol/l Total Bilirubin 0.5 (0.2-1) mg/dl AST 23 (15-37) U/L ALT 42 (12-78) U/L Alkaline Phosphatase 104 (45-117) U/L Total Protein 6.9 (6.4-8.2) gm/dl Albumin 3.3 L (3.4-5.0) gm/dl Globulin 3.6 (2.5-4.0) gm/dl Albumin/Globulin Ratio 0.9 (0.9-2) Lipase 98 (73-393) U/L Urine Color Urine Appearance (Clear) Urine pH (4.5-7.5) Ur Specific [place] (1.000-1.030) Urine Protein (Negative) Urine Glucose (UA) (Negative) Urine Ketones (Negative) Urine Blood (Negative) Urine Nitrite (Negative) Urine Bilirubin (Negative) Urine Urobilinogen (Negative) Ur Leukocyte Esterase (Negative) Urine WBC (Auto) (0-5) /hpf Urine RBC (Auto) (0-4) /hpf U Hyaline Cast (Auto) (0-5) /lpf U Epithel Cells (Auto) (0-5) /lpf Urine Bacteria (Auto) (Negative) 11/29/19 Range/Units 22:24 WBC (4.8-10.8) K/uL RBC (4.2-5.4) M/uL Hgb (12.0-16.0) g/dL POC Hgb (12.0-16.0) g/dl Hct (37-47) % POC Hct (37-47) % MCV (80-100) fL MCH (25-34) pg MCHC (32-36) g/dL RDW Std Deviation (36.4-46.3) fL RDW Coeff of Kaveh (11.5-14.5) % Plt Count (130-400) K/uL MPV (7.4-10.4) fL Immature Gran % (Auto) % Neut % (Auto) % Lymph % (Auto) % [place] % (Auto) % Eos % (Auto) % Baso % (Auto) % Neut # (Auto) (1.4-6.5) K/uL Lymph # (Auto) (1.2-3.4) K/uL [place] # (Auto) (0.11-0.59) K/uL Eos # (Auto) (0-0.5) K/uL Baso # (Auto) (0-0.2) K/uL Immature Gran # (Auto) (0.00-0.02) K/uL POC Sodium (135-144) mmol/L Sodium (136-145) mmol/L POC Potassium (3.3-5.0) mmol/L Potassium (3.5-5.1) mmol/L POC Chloride (101-112) mmol/L Chloride (98-107) mmol/L Carbon Dioxide (21-32) mmol/L POC Total CO2 (24-31) mmol/L Anion Gap (3-11) POC Anion Gap (16-25) mmol/L POC BUN (7-18) mg/dl BUN (7-18) mg/dl Creatinine (0.6-1.2) mg/dl POC Creatinine (0.6-1.3) mg/dl Est Cr Clr Drug Dosing ml/min Est GFR ( Amer) Est GFR (Non-Af Amer) BUN/Creatinine Ratio (10-20) Glucose (70-99) mg/dl POC Glucose (other) (70-99) mg/dl Calcium (8.5-10.1) mg/dl POC Ioniz Calcium Yfn (1.12-1.32) mmol/l Total Bilirubin (0.2-1) mg/dl AST (15-37) U/L ALT (12-78) U/L Alkaline Phosphatase (45-117) U/L Total Protein (6.4-8.2) gm/dl Albumin (3.4-5.0) gm/dl Globulin (2.5-4.0) gm/dl Albumin/Globulin Ratio (0.9-2) Lipase (73-393) U/L Urine Color Yellow Urine Appearance Clear (Clear) Urine pH 7.0 (4.5-7.5) Ur Specific [place] 1.020 (1.000-1.030) Urine Protein Negative (Negative) Urine Glucose (UA) Negative (Negative) Urine Ketones Negative (Negative) Urine Blood Negative (Negative) Urine Nitrite Negative (Negative) Urine Bilirubin Negative (Negative) Urine Urobilinogen Negative (Negative) Ur Leukocyte Esterase 2+ H (Negative) Urine WBC (Auto) >30 H (0-5) /hpf Urine RBC (Auto) 0-4 (0-4) /hpf U Hyaline Cast (Auto) 5-10 H (0-5) /lpf U Epithel Cells (Auto) 20-30 H (0-5) /lpf Urine Bacteria (Auto) Negative (Negative) Imaging Data Attestation: I personally reviewed and interpreted this imaging study as follows: My Impression: KUB to my interpretation reveals dilated bowel loops without evidence of free air Radiologist's Impression: CT abdomen and pelvis with contrast: Compared to 11/17/19. Wall thickening of small bowel loops in the lower abdomen suggestive of enteritis. Distended fluid-filled small bowel loops are also seen with transition point in the left lower quadrant, compatible with obstruction. Fluid in the colon, can be seen with diarrheal disease. Small free fluid. Fluid attenuation in the right inguinal region, may be related to postsurgical changes. Correlate clinically regarding inflammatory/infectious process. Slightly thickened under distended bladder. Nephrolithiasis. No hydronephro sis. Bibasilar atelectatic changes. Additional incidental findings similar to prior study. Radiologist:Shelby Eli MD Blood Pressure Blood Pressure Findings: Normal blood pressure Blood Pressure Disposition: did not require urgent referral MDM Narrative This patient was evaluated and appeared to be in some discomfort. IV access was obtained and laboratory work was drawn. An order for cardiac monitoring was placed and the patient is noted to be in a normal sinus rhythm at 107 bpm. IV fluids were initiated and patient was medicated with IV Dilaudid and Zofran. KUB was performed and reveals no evidence for free air but there is evidence of dilated bowel loops. Follow-up CT of the abdomen with IV contrast reveals concern over small bowel obstruction and a fluid-filled colon. Patient is noted to have an elevated WBC of 14.89. Patient was medicated with 2 g of IV Mefoxin and an NG tube was placed. General surgery, Dr. Centeno and Bobby Arambula PA-C were consulted. Patient was evaluated and will be admitted for further management. Patient and are aware of the plan and agree. Impression & Plan Small bowel obstruction, S/P right inguinal hernia repair Discharge Plan Visit Data Chief Complaint: Abdominal Pain Stated Complaint: ABD. PAIN, EMGNCY SURGERY LESS THAN 2 WKS AGO ED Provider: Luzma Rodriguez Discharge Problem: Small bowel obstruction, S/P right inguinal hernia repair Patient Disposition: Admitted As Inpatient Discharge Instructions Interventions: ED Discharge Assessment Last Done: 11/30/19 00:07
[2019-11-30] MEDS: LACTATED RINGER'S 1,000 ML IV SCH ×3 (01:41→23:09)
[2019-11-30] MEDS: HYDROmorphone INJ 0.5 MG/0.5 ML SYR IV PRN ×6 (01:43→20:53)
[2019-11-30] MEDS: ONDANSETRON INJ 2 MG/ML 2 ML VIAL IV PRN ×2 (01:50→09:28)
[2019-11-30] MEDS ORDERED: CHLORASEPTIC 1.4% SOLN 180 ML BTL MT PRN (02:06)
[2019-11-30] MEDS: cefOXitin 2,000 MG in DEXTROSE 5% 50 ML IV SCH ×4 (05:33→23:31)
[2019-11-30 06:27] LABS: Basophils # (auto) 0.02 K/uL (0-0.2); Basophils % (auto) 0.2 %; Eosinophils # (auto) 0.21 K/uL (0-0.5); Eosinophils % (auto) 2.4 %; Hematocrit (blood only) 36.2 % (37-47); Hemoglobin 11.8 g/dL (12.0-16.0); Immature Granulocytes # (auto) 0.03 K/uL (0.00-0.02); Immature Granulocytes % (auto) 0.3 %; Lymphocytes # (auto) 0.97 K/uL (1.2-3.4); Lymphocytes % (auto) 11.2 %; Mean Corpuscular Hemoglobin 30.8 pg (25-34); Mean Corpuscular Volume 94.5 fL (80-100); Mean Platelet Volume 9.7 fL (7.4-10.4); Monocytes # (auto) 0.67 K/uL (0.11-0.59); Monocytes % (auto) 7.8 %; Neutrophils # (auto) 6.74 K/uL (1.4-6.5); Neutrophils % (auto) 78.1 %; Platelet Count 335 K/uL (130-400); RDW Standard Deviation 47.7 fL (36.4-46.3); Red Blood Count 3.83 M/uL (4.2-5.4); White Blood Count 8.64 K/uL (4.8-10.8)
[2019-11-30 06:28] LABS: Mean Corpuscular Hgb Conc 32.6 g/dL (32-36)
[2019-11-30 07:02] LABS: BUN Creatinine Ratio 19.6 (10-20); Calcium 8.3 mg/dl (8.5-10.1); Est GFR (African American) 62.6
--- NOTE | 2019-11-30 07:07 | XRay Report ---
KUB HISTORY: Patient presents with acute generalized abdominal pain and reported small bowel obstruction SBO COMPARISON: CT abdomen and pelvis 11/29/2019 FINDINGS: Status post placement of an enteric tube, distal tip injection within the left paracentral mid abdomen at the level of L2-L3, likely within the mid to distal gastric body. There is decreased s mall bowel distention. Air is noted within the rectum and large bowel. Mild fecal retention. Renal s hadows are partially obscured by bowel gas. Left nephrolithiasis without ureteral calculi identified. Numerous phleboliths of the pelvis. No pneumoperitoneum or pneumatosis. Dextroscoliosis of the lumba r spine with multilevel degenerative changes. No acute fracture. IMPRESSION: 1. Moderately decreased small bowel distention status post placement of an enteric tube, distal tip t erminating in the expected location of the mid to distal gastric body. 2. Left nephrolithiasis. ACT 112: Negative or not required by law. The above report was generated using voice recognition software. It may contain grammatical, syntax o r spelling errors. Electronically signed by: Donny Abel M.D. 11/30/2019 7:05 AM
--- NOTE | 2019-11-30 07:35 | XRay Report ---
KUB HISTORY: EPIGASTRIC PAIN, S/P HERNIA SURGERY 11/16 COMPARISON: KUB 11/18/2019. FINDINGS: A few mildly dilated gas-filled loops of small bowel seen within the lower abdomen. These m easure up to 3.2 cm in diameter. There is gas and stool within the colon. Mild dextroscoliosis of the lumbar spine. No renal calculi. No ureteral calculi. Calcifications in the deep pelvis likely repre sent phleboliths. No pneumoperitoneum or pneumatosis. IMPRESSION: A few mildly dilated gas-filled loops of small bowel within the lower abdomen. There is also gas and stool within the colon. This could represent a postoperative ileus versus partial small bowel obstruc tion. ACT 112: Negative or not required by law. Electronically signed by: Juan Chong M.D. 11/30/2019 7:34 AM
--- NOTE | 2019-11-30 08:42 | CT Scan Report ---
CT SCAN OF THE ABDOMEN AND PELVIS WITH IV CONTRAST CLINICAL HISTORY: Generalized abdominal pain. COMPARISON STUDY: Abdominal CT dated 11/17/2019. TECHNIQUE: Following the IV administration of 94 cc of Optiray 320, CT scan of the abdomen and pelvi s is performed from the lung bases to the proximal femora. Images are reviewed in the axial, sagittal , and coronal planes. IV contrast was administered without complication. A dose lowering technique wa s utilized adhering to the principles of ALARA. CT DOSE: 498.07 mGy.cm FINDINGS: Lung bases: The heart is normal in size and without pericardial effusion. A calcified granuloma is no meme at the left lung base. The lung bases are otherwise clear noting bibasilar atelectasis. Liver: The contrast-enhanced liver is normal in size, contour, and attenuation. There is no intrahepa tic biliary ductal dilatation. The hepatic veins and portal veins are patent. Gallbladder: Unremarkable. Spleen: Normal in size and attenuation. Pancreas: Unremarkable. Adrenal glands: Unremarkable. Kidneys: The contrast enhanced kidneys are normal in size and without hydronephrosis. The kidneys enh ance symmetrically. Bilateral renal cysts measure up to 2.9 cm. Additional subcentimeter cortical hyp odensities also likely represent cysts but are too small for definitive characterization. There is a 6 mm nonobstructing left renal calculus. A punctate nonobstructing calculus is noted in the right kid zelalem. Abdominal vasculature: The abdominal aorta is normal in course and caliber noting mild atheroscleroti c calcification. Bowel: The proximal small bowel loops are mildly distended and fluid-filled measuring up to 3 cm in d iameter. There are several thick-walled loops of ileum in the central pelvis with surrounding inflamm atory change and interloop fluid. The distal small bowel is decompressed. There is an apparent transi tion point in the left pelvis on image #305 located just distal to the inflamed small bowel loops. Th ere are scattered colonic diverticula without CT evidence of acute diverticulitis. The appendix is w ell-visualized and normal. Peritoneum: There is trace perihepatic and perisplenic ascites. There a complex and peripherally enha ncing fluid collection identified in the central pelvis anterior to the rectum. This is best seen on image #322 and measures 7 x 6.7 x 3.9 cm. No intraperitoneal free air is identified. Lymphadenopathy: None. Pelvic viscera: The bladder is normal as visualized. The uterus is surgically absent. No adnexal lesi on is seen. A presumed sacropexy is noted in the central pelvis. There are numerous pelvic phlebolith s. There is evidence of right inguinal hernia repair. A pocket of fluid in the right groin measures 4 cm is seen on image #359. This effaces the right common femoral vein. Skeletal structures: The skeletal structures are osteopenic. There are bilateral pars defects at L5. Mild lumbosacral spondylosis is observed. No lytic or blastic lesions are seen. IMPRESSION: 1. There is postoperative change from interval right inguinal hernia repair as compared to 11/17/2019. A 4 cm pocket of fluid in the right groin likely represents a postoperative seroma. 2. There are numerous thick walled and inflamed loops of ileum in the pelvis. There is associated int erloop fluid. 3. There is mild upstream distention of the small bowel loops. Although there is an apparent transiti on point in the left hemipelvis, this is located just distal to the inflamed loops of ileum and there are decompressed loops of proximal small bowel. This likely represents a low-grade functional obstru ction secondary to bowel edema. 4. There is a 7 x 6.7 x 3.9 cm complex and peripherally enhancing fluid collection in the deep pelvis anterior to the rectum. This is history for abscess. Clinical correlation will be required. 5. There is a small volume of abdominopelvic ascites. 6. Left-sided nephrolithiasis. 7. Additional findings as above. ACT 112: Negative or not required by law. Electronically signed by: Leif Still M.D. 11/30/2019 8:40 AM
[2019-11-30] MEDS: ENOXAPARIN INJ 40 MG/0.4 ML SYR SQ SCH (09:17)
--- NOTE | 2019-11-30 11:09 | Surgery Progress Note ---
Date of Service November 30, 2019 Assessment & Plan (1) S/P right inguinal hernia repair: It is unclear to me exactly what is going on. She was doing great postoperatively until Friday. Her symptoms were primarily in her upper abdomen. She had no vomiting and denies fever at home. There is a fluid collection in the pelvis which could represent postoperative abscess however clinically this is not where her discomfort is. Her white blood cell count is now down to normal. She could have a functional partial small bowel obstruction and with the bowel being ischemic at the time of operation she could be having some persistent small bowel edema from reperfusion injury. For now since she appears to be improving I am going to keep the NG tube and IV fluids overnight. I may consider a small bowel follow-through tomorrow before removing the tube and reinitiating fluids. If she does not improve I will consider having interventional radiology drain the pelvic fluid collection but for now I am going to monitor and continue IV antibiotics. Admission and Anticipated Discharge Date Admission Date: November 29, 2019 Subjective Patient seen. Feeling better than yesterday. Still has some mild intermittent upper abdominal cramps. Her main complaint is NG tube discomfort. Physical Exam Physical Exam: Alert. No acute distress Abdomen is soft. Perhaps mild distention. Minimal tenderness primarily in the upper abdomen. All of her incisions are healing nicely with no sign of infection Results & Data ([facility]) Vital Signs (Past 12 Hours) Vital Signs Temp Pulse Pulse Resp BP Pulse Ox Pulse Ox 11/30/19 08:08 36.9 C 72 16 112/70 97 11/30/19 05:53 36.6 C 76 16 98/61 L 98 11/30/19 00:28 36.5 C 85 18 119/78 94 11/30/19 00:15 36.5 C 85 18 119/78 94 94 11/30/19 00:01 81 18 121/86 98 PG Care Time/CCT Total # of Minutes Spent Total Time Spent with Patient: Total time spent is greater than 50% in coordination of care (as documented) at patient's floor/unit and/or counseling patient: Coding Level of Care Code None Diagnoses S/P right inguinal hernia repair Z98.890; Z87.19
[2019-11-30] MEDS: PANTOprazole 40 MG in SYRINGE 0 ML IV SCH (13:01)
[2019-12-01] MEDS: HYDROmorphone INJ 0.5 MG/0.5 ML SYR IV PRN ×2 (00:11→03:22)
[2019-12-01] MEDS: cefOXitin 2,000 MG in DEXTROSE 5% 50 ML IV SCH ×3 (05:29→18:06)
--- NOTE | 2019-12-01 07:22 | XRay Report ---
KUB CLINICAL HISTORY: eval bowel/gas pattern COMPARISON STUDY: CT of the abdomen and pelvis November 29, 2019. KUB November 30, 2019. FINDINGS: Tip of nasogastric tube is within the distal body of the stomach. Small bowel dilatation [place] s improved. Wall thickening of several small bowel loops is suggestive but suboptimally assessed by r adiography. IMPRESSION: 1. Interval improvement in small bowel dilatation. 2. Suspected wall thickening of several small bowel loops, suboptimally assessed by radiography. ACT 112: Negative or not required by law. Electronically signed by: Daniel Barillas M.D. 12/01/2019 7:21 AM
--- NOTE | 2019-12-01 07:36 | Surgery Progress Note ---
Date of Service December 01, 2019 Assessment & Plan (1) Small bowel obstruction: bowel function returning, moderate NG output although also taking ice will try clamping NG, maybe remove later this morning as above. symptoms essentially resolved. no abdominal pain. +flatus . no bm yet. xray--resolution of small bowel dilation. will give clamping trial. if she does well will d/c ngt and try clears. abd: less distended today. afebrile. wbc normal. Admission and Anticipated Discharge Date Admission Date: November 29, 2019 Subjective increasing flatus, occasional epigastric pain but improved Physical Exam Gastrointestinal (Abdomen): Inspection/Auscultation: + abdomen distended (minimal) Percussion/Palpation: abdomen soft NG 300-500 per shift with ice Results & Data ([facility]) Vital Signs (Past 12 Hours) Vital Signs Temp Pulse Resp BP Pulse Ox 12/01/19 07:13 37.0 C 74 16 110/70 94 11/30/19 23:25 37.5 C 93 H 16 108/69 94 PG Care Time/CCT Total # of Minutes Spent Total Time Spent with Patient: Total time spent is greater than 50% in coordination of care (as documented) at patient's floor/unit and/or counseling patient: Coding Level of Care Code None Diagnoses Small bowel obstruction K56.609
[2019-12-01] MEDS ORDERED: ACETAMINOPHEN 1,000 MG/100 ML VIAL IV STA (07:37)
[2019-12-01] MEDS ORDERED: KETOROLAC 30 MG/ML VIAL IV ONE (07:38)
[2019-12-01] MEDS: ENOXAPARIN INJ 40 MG/0.4 ML SYR SQ SCH (07:52)
[2019-12-01] MEDS: D5W AND 1/2NSS + 20MEQ KCL 20 MEQ/1,000 ML BAG IV SCH ×2 (10:24→18:05)
[2019-12-01] MEDS: PANTOprazole 40 MG in SYRINGE 0 ML IV SCH (11:38)
[2019-12-01] MEDS ORDERED: ACETAMINOPHEN 325 MG TAB PO PRN (12:50)
[2019-12-01] MEDS: LACTATED RINGER'S 1,000 ML IV SCH (13:48)
[2019-12-01] MEDS ORDERED: COUGH DROP (SUGAR FREE) LOZ 24 LOZ/1 BOX BUCCAL ONE (15:28)
[2019-12-02] MEDS: cefOXitin 2,000 MG in DEXTROSE 5% 50 ML IV SCH ×4 (01:18→17:16)
[2019-12-02] MEDS: D5W AND 1/2NSS + 20MEQ KCL 20 MEQ/1,000 ML BAG IV SCH (03:00)
--- NOTE | 2019-12-02 07:21 | Surgery Progress Note ---
Date of Service December 02, 2019 Assessment & Plan (1) S/P right inguinal hernia repair: Clinically improving. Will advance to soft diet. If she does well overnight will consider discharge tomorrow. Admission and Anticipated Discharge Date Admission Date: November 29, 2019 Subjective Patient seen. Doing well. She tolerated NG tube removal as well as clear liq uid diet. She did have a bowel movement yesterday. No nausea and she is hungry. Physical Exam Physical Exam: Alert. No acute distress. Looks well today. abd: Soft. Incisions look good. Nontender. Results & Data ([facility]) Vital Signs (Past 12 Hours) Vital Signs Temp Pulse Resp BP Pulse Ox 12/02/19 07:10 36.7 C 76 16 100/64 94 12/02/19 03:18 36.9 C 67 16 94/54 L 94 12/01/19 23:20 36.9 C 69 16 107/64 97 12/01/19 19:50 37.1 C 64 16 101/63 98 PG Care Time/CCT Total # of Minutes Spent Total Time Spent with Patient: Total time spent is greater than 50% in coordination of care (as documented) at patient's floor/unit and/or counseling patient: Coding Level of Care Code None Diagnoses S/P right inguinal hernia repair Z98.890; Z87.19
[2019-12-02] MEDS: ENOXAPARIN INJ 40 MG/0.4 ML SYR SQ SCH (08:00)
[2019-12-02] MEDS: PANTOprazole 40 MG TAB PO SCH (08:00)
[2019-12-02] MEDS: BuPROPion XL 150 MG TABCR PO SCH (08:00)
[2019-12-02] MEDS: PANTOprazole 40 MG in SYRINGE 0 ML IV SCH (10:41)
[2019-12-02] MEDS: HYDROCODONE/ACETAMOPHEN 5/325MG TAB PO PRN (20:53)
[2019-12-02] MEDS: HYDROmorphone INJ 0.5 MG/0.5 ML SYR IV PRN (21:54)
[2019-12-03] MEDS: cefOXitin 2,000 MG in DEXTROSE 5% 50 ML IV SCH ×2 (00:47→05:53)
--- NOTE | 2019-12-03 07:20 | Surgery Progress Note ---
Date of Service December 03, 2019 Assessment & Plan (1) S/P right inguinal hernia repair: Patient continues to improve each day Tolerated a low fiber diet yesterday, having + bowel function Will plan for discharge to home today with follow up with Dr. Price in 1-2 weeks Admission and Anticipated Discharge Date Admission Date: November 29, 2019 Subjective Patient states she is feeling better each day. She tolerated a diet yesterday without nausea/vomiting, or abdominal pain. She is passing flatus, last BM yesterday. Does have a sore throat she attributes to NGT, says is getting somewhat better. Eager for discharge today. Physical Exam Physical Exam: awake/alert Gastrointestinal (Abdomen): Percussion/Palpation: abdomen soft; abdomen nontender Results & Data ([facility]) Vital Signs (Past 12 Hours) Vital Signs Temp Pulse Resp BP Pulse Ox 12/03/19 03:38 36.8 C 65 16 100/63 94 12/02/19 23:11 36.7 C 68 16 100/53 L 94 PG Care Time/CCT Total # of Minutes Spent Total Time Spent with Patient: Total time spent is greater than 50% in coordination of care (as documented) at patient's floor/unit and/or counseling patient: Coding Level of Care Code None Diagnoses S/P right inguinal hernia repair Z98.890; Z87.19
[2019-12-03] MEDS ORDERED: COUGH DROP (SUGAR FREE) LOZ 24 LOZ/1 BOX BUCCAL PRN (07:57)
[2019-12-03] MEDS: PANTOprazole 40 MG TAB PO SCH (08:04)
[2019-12-03] MEDS: BuPROPion XL 150 MG TABCR PO SCH (08:04)
[2019-12-03] MEDS: ENOXAPARIN INJ 40 MG/0.4 ML SYR SQ SCH (08:04)
[2019-12-03] MEDS: HYDROCODONE/ACETAMOPHEN 5/325MG TAB PO PRN (10:33)
[2019-12-03] MEDS: PANTOprazole 40 MG in SYRINGE 0 ML IV SCH (11:30)
--- NOTE | 2019-12-16 15:27 | Discharge Summary ---
Date of Service December 16, 2019 Admission HPI Per Admitting Provider 64 year old female had a right incarcerated inguinal hernia repair on 11/17/19. She did not require resection of any bowel at the time of surgery. Her post op course was only complicated by an ileus and she was d/c home on 11/21/19. She was doing well until yesterday when she began to have waves of generalized abdominal pain that was non radiating and confined mostly to the upper abdomen. No provocative factors noted. Pain is relived with meds given in the ED. She had a BM earlier today and denies fevers, shakes, chills, or N/V. She called this provider and was instructed to go to the ED for evaluation. In the ED. WBC was noted to be elevated at 14K (was normal at time of d/c). Her lipase and LFTs, along with her electrolytes were normal. CT scan of the abdomen showed no free air, but concern for a SBO as well as enteritis was noted. At the time of my exam she was not in any distress. Principal Diagnosis PSBO Discharge Exam Constitutional WD/WN, vitals as above no acute distress and not ill appearing Eyes PERRL, conjunctivae normal, anicteric sclerae EOM intact bilaterally ENMT external ear and nose normal, oropharynx normal Ears: no hearing impairment Neck trachea midline, no thyromegaly Respiratory normal respiratory effort; no respiratory distress and does not use accessory muscles Cardiovascular Rate/Rhythm: regular rate and regular rhythm Gastrointestinal (Abdomen) soft. mild distension. wounds healing nicely. no sign of infection Skin no rashes, warm and dry Psychiatric Orientation: alert, oriented x 3 and cooperative Discharge Data Allergies Allergy/AdvReac Type Severity Reaction Status Date / Time itraconazole Allergy Unknown HIVES Verified 12/14/19 09:55 Consultations 11/29/19 23:29 ED Decision to Admit Stat Ordered Studies 11/29/19 22:05 CT abd pelvis IV con only Urgent Total Time Total Time Spent Total Time Spent (In Minutes): 20 Total Time Includes: Examination of the Patient, Discharge Planning, Medication Reconciliation and Other Discharge Plan Discharge Items Patient Disposition: Home - Self-Care Reason For Visit: SBO, ENTERITIS Discharge Diagnosis: small bowel obstruction enteritis Activity: Per Instructions section Bathing Comment: may shower; no soaking in tubs/pools Exercise/Sports: Wait until after follow-up appointment Non-emergency contact: Surgeon Call non-emergency contact if: you have any medication questions, your symptoms worsen, your pain is not controlled, your pain is worsening, your pain is unusual for you, you have a fever, your temperature is above 101.5, your wound has increased redness, your wound has increased drainage and your wound pain has increased Follow-up/Referrals: Donovan Price, DO [Surgeon] - 12/14/19 10:00 am (Please call to schedule follow up in clinic within 1-2 weeks) Larisa Trevino PA-C [Primary Care Provider] - Diet: Low Fiber Addtl Attending Provider Instructions: Pending Studies at Discharge: No Stand-Alone Forms: [facility], Smoking Cessation Medications and DC Order Prescriptions: Continued potassium chloride 10 mEq capsule, extended release 10 meq PO UD PRN (Reason: See Comment) RF: 0 omeprazole 20 mg capsule,delayed release(DR/EC) 20 mg PO DAILY RF: 0 montelukast 10 mg tablet 10 mg PO HS RF: 0 furosemide 20 mg tablet 20 mg PO UD PRN (Reason: Edema) RF: 0 loratadine 10 mg Tablet 10 mg PO HS PRN (Reason: Allergy Symptoms) RF: 0 bupropion HCl 150 mg tablet extended release 24 hr 150 mg PO DAILY RF: 0 melatonin 5 mg Tablet 5 mg PO HS PRN (Reason: Sleep) RF: 0 Probiotic 10 billion cell Capsule 0 cell PO QAM RF: 0 No Action oxycodone 5 mg tablet 5 mg PO Q8H PRN (Reason: pain) Qty: 14 RF: 0 Discharge Orders: Discharge Order (Routine); Ordered 12/03/19 Ordered By: Donovan Rizzo/Other Patient Handouts: Pain Management After Surgery Admission Data Admit Date/Time: 11/29/19 23:34 Attending Provider: David Centeno Admit Provider: David Centeno Primary Care Provider: Larisa Trevino Other Providers: David Centeno Other Interventions: Discharge Summary Assessment (RN) Last Done: 12/03/19 11:09 Coding Level of Care Code D/C Day Management <30 mins
== END 2019-12-03 11:31 | disposition home or self-care (01) | DRG 390 ==
LOC: ED 20:35 → 3N 23:34

== ENCOUNTER 2019-12-06 06:45 | Observation (INO) ==
[2019-12-06] MEDS ORDERED: SODIUM CHLORIDE 0.9% 1000ML 1,000 ML IV ONE (07:57)
[2019-12-06] MEDS ORDERED: KETOROLAC TROMETHAMINE 15 MG/ML VIAL IV STA (07:57)
--- NOTE | 2019-12-06 08:10 | Emergency Department Note ---
Impression & Plan SBO (small bowel obstruction) ED Provider Note CHIEF COMPLAINT: Diffuse abdominal pain HISTORY OF PRESENTING ILLNESS: This is a 64-year-old female who presents to the emergency department by private vehicle with complaint of diffuse abdominal pain that started last night. Patient states she feels pain across the upper abdomen and into the left side. The pain is constant, crampy, nothing seems to make it better or worse, and she rates the pain 9/10. Her pain medication she has been taking at home has not been helping the pain. She denies any nausea, vomiting, or diarrhea. She notes that she has been fairly constipated since her discharge home, her last bowel movement was yesterday. She denies any urinary symptoms. She denies any fevers or chills. The patient was recently admitted for a bowel obstruction and discharged home 3 days ago. She states at that time she was feeling well, had no pain, and was eating and drinking without difficulty. She states that she had a right inguinal incarcerated hernia that was surgically repaired at the beginning of the month, she believes that the bowel obstruction was due to that. She states they also told her that she had enteritis, and she has been taking Augmentin. She also notes a history of hysterectomy and bladder sling surgery. REVIEW OF SYSTEMS: A complete 10 point review of systems was reviewed with the patient with pertinent positives and negatives as per history of present illness. All else were negative. PAST MEDICAL HISTORY: GERD, small bowel obstruction, s/p inguinal hernia repair, hysterectomy, bladder suspension procedure SOCIAL HISTORY: Lives at home with her significant other, she denies tobacco use ALLERGIES: Reviewed in chart and with the patient PHYSICAL EXAM: CONSTITUTIONAL: Pleasant and cooperative. Nontoxic-appearing and in no acute distress. Mildly dehydrated, but otherwise well appearing and well nourished. HEENT: Normocephalic, atraumatic. PERRL, EOMI. Pharynx normal. Tacky mucous membranes. NECK: Supple, full active range of motion without discomfort. RESPIRATORY: Clear to auscultation bilaterally with no wheezing, crackles, rhonchi or stridor. Equal expansion bilaterally. CARDIOVASCULAR: Regular rate and rhythm with no murmurs, rubs or gallops. Normal peripheral perfusion. No edema. GASTROINTESTINAL: Diffuse tenderness to palpation throughout the abdomen, most tender in the left lower quadrant. No rebound tenderness or guarding. Abdomen is soft and nondistended. Several small surgical scars noted on the abdomen as well as a right inguinal scar that appear to be healing well, no erythema, dehiscence, or discharge. No palpable masses or HSM. Hypoactive bowel sounds present in all quadrants. No CVA tenderness bilaterally. MUSCULOSKELETAL: Full range of motion of all joints without discomfort. INTEGUMENTARY: No rash or other significant dermatologic conditions noted. NEUROLOGIC: Alert and oriented X 4 with normal affect. Normal strength and sensation in all 4 extremities. Normal speech. Normal gait observed. ED COURSE AND MEDICAL DECISION MAKING: CC: Patient presenting with complaint of diffuse abdominal pain DIFFERENTIAL DIAGNOSIS: Includes, but not limited to small bowel obstruction, ileus, gastroenteritis, colitis, mesenteric adenitis, postoperative infection, UTI, diverticulitis, appendicitis, among others. INTERPRETATION OF LABS: No leukocytosis, no anemia, normal platelets, no significant electrolyte abnormalities, elevated BUN with a normal creatinine, mildly elevated liver enzymes, normal lipase. UA negative for infection. IMAGING: ABDOMEN AND PELVIS CT WITH IV CONTRAST CT DOSE: 504.69 mGy.cm HISTORY: diffuse abd pain, recent hernia repair surgery, small bowel obstruction. TECHNIQUE: Multiaxial CT images of the abdomen and pelvis were performed following the use of intravenous contrast. A dose lowering technique was utilized adhering to the principles of ALARA. COMPARISON STUDY: Abdomen and pelvis CT 11/29/2019. FINDINGS: Bibasilar linear densities favor subsegmental atelectasis. No pneumoperitoneum. No pneumatosis. Bilateral L5 spondylolysis. No suspicious lytic or blastic osseous lesions. Partially peripheral enhancing fluid within the right proximal inguinal canal measuring 4.7 x 3.1. This is stable to slightly decreased in size compared to the prior study. There is mild surrounding infiltration at this location which is also unchanged. This results in mass effect without thrombosis at the right common femoral vein. The bladder is unremarkable. The uterus surgically absent. Hysterectomy with evidence for prior sacropexy at the vaginal cuff. Bowel wall edema within the small bowel has improved. Multiple dilated loops of fluid-filled small bowel persists. There is a focal transition point seen within the left anterior abdomen on images 250 through 253. This is consistent with a persistent small bowel obstruction. Trace pelvic free fluid with mild partial enhancement within the deep pelvis. This has improved in the interval. This currently measures 5.2 x 3.7 cm, previously measuring 6.7 x 3.9 cm. No retroperitoneal lymphadenopathy. The liver, pancreas, gallbladder, and adrenal glands unremarkable. There are few small hypodense lesions within the spleen and kidneys. These favor cysts. No hydronephrosis. There is a 4 mm stone within the left kidney IMPRESSION: 1. Status post right inguinal hernia repair. The small pocket of fluid within the proximal right inguinal canal is stable to slightly decreased in size. Therefore, this favors a postoperative seroma at this time. 2. Bowel wall edema within the small bowel has significantly improved. 3. Focal transition point within the small bowel within the left anterior/mid abdomen with proximal dilatation. This is consistent with a persistent small bowel obstruction. This is similar to the prior study. 4. Decrease in size in the 5.2 x 3.7 cm fluid collection within the deep pelvis which demonstrates partial peripheral enhancement. This favors resolving postoperative fluid collection. Secondary infection would be impossible to exclude by imaging. 5. Left-sided nephrolithiasis. No hydronephrosis. 6. Additional findings as described above. MEDICATION RECONCILIATION: I attest that I have personally reviewed the patient's current medication list. INITIAL VITAL SIGNS REVIEW: I reviewed the patient's initial vital signs and interpret them as follows: T: Afebrile; BP: Normotensive; HR: Within normal limits; RR: Within normal limits; Pulse Ox: Within normal limits on room air. Blood pressure screening: The patient was found to have normal blood pressure on screening and does not require follow-up for repeat blood pressure check. MDM SUMMARY: Patient was evaluated at bedside, history and physical exam performed. Patient is alert and oriented, in no acute distress, resting calmly in stretcher. She is afebrile and nontoxic-appearing. She does appear mildly dehydrated. The abdomen is diffusely tender, most tender on the left side,, but no acute abdomen. She has not had any nausea or vomiting and has eaten and drank a little bit today. She also had a normal bowel movement today. Review of the patient's chart noting she was recently admitted for a small bowel obstruction, the patient states that she was feeling improved at the time of discharge. Cardiac monitoring: An order was placed for continuous cardiac monitoring. The monitor shows a rate of 82 bpm with normal sinus rhythm. Orders were placed at bedside for labs, UA, IV fluid bolus for hydration, IV Toradol for pain, CT abdomen/pelvis to evaluate for abdominal pain. Patient discussed with Dr. Roldan, who agrees with my assessment, plan, and disposition. Labs and imaging reviewed as above, labs are fairly unremarkable. She does appear mildly dehydrated with an elevated BUN. CT imaging of the abdomen shows a persistent/recurrent small bowel obstruction. Other abnormal findings on previous CT appeared to be improving overall. I did request that Dr. Johnson with general surgery evaluate the patient, he is planning to admit her for further evaluation. No NG tube at this point. Patient reassessed multiple times throughout ED stay, she has remained hemodynamically stable and afebrile and reports her pain was well controlled with the Toradol. She was updated on all results and plan for admission, she verbalized understanding and was agreeable to this plan The patient was stable at time of admission. The chart was completed utilizing [employer] Speech voice recognition software. Grammatical errors, random word insertions, pronoun errors, and incomplete sentences are an occasional consequence of this system due to software li mitations, ambient noise, and hardware issues. Any formal questions or concerns about the content, text, or information contained within the body of this dictation should be directly addressed to the nurse practitioner for clarification. Past Med/Surg History Medical History (Updated 12/06/19 @ 16:32 by VADIM Beckham) GERD (gastroesophageal reflux disease) Incarcerated hernia Small bowel obstruction Surgical History (Updated 12/06/19 @ 13:28 by Camron Johnson MD) History of bladder suspension procedure History of femoral hernia repair (11/17/19) Diagnostic Laparoscopy, Convert to Open Reducation of Small Bowel Obstruction; Repair of Incarcerated Right Femoral Hernia with Mesh Dr. Price 11/17/2019 History of foot operation History of hysterectomy Hx of tonsillectomy S/P right inguinal hernia repair Social History Smoking Status: Never smoker Second Hand Exposure: No; Hx Alcohol Use: Yes Alcohol type: beer, wine and hard liquor Hx Substance Use: No Preferred Language: Romansh Communication Ability: Effective Home Aide Required: No Beliefs That Will Affect Care: None Current Living Situation: Spouse Other Information That Helps Us Care for You: No Feels Safe at Home: Yes Safety Concerns: Feels Safe At This Time Assistive Devices: Glasses Allergies Allergies Allergy/AdvReac Type Severity Reaction Status Date / Time Lactobacillus acidophilus Allergy Severe Hives Unverified 12/06/19 07:29 [From Floranex] Lactobacillus bulgaricus Allergy Severe Hives Unverified 12/06/19 07:29 [From Floranex] itraconazole Allergy Unknown HIVES Verified 12/06/19 07:29 Home Meds Home Medications Medication Instructions Recorded Confirmed Probiotic 0 cell PO QAM 11/17/19 12/06/19 bupropion HCl 150 mg PO DAILY 11/17/19 12/06/19 furosemide 20 mg PO UD PRN 11/17/19 12/06/19 loratadine 10 mg PO HS PRN 11/17/19 12/06/19 melatonin 5 mg PO HS PRN 11/17/19 12/06/19 montelukast 10 mg PO HS 11/17/19 12/06/19 omeprazole 20 mg PO DAILY 11/17/19 12/06/19 potassium chloride 10 meq PO UD PRN 11/17/19 12/06/19 hydrocodone-acetaminophen [[place]] 1 - 2 tab PO Q6H PRN 12/06/19 12/06/19 Previous Rx's Medication Instructions Recorded amoxicillin-pot clavulanate 1 tab PO BID #14 tab 12/03/19 [Augmentin] Results & Data (ED) Vital Signs Vital Signs - 24 hr 12/06/19 06:53 12/06/19 09:50 12/06/19 11:18 Temperature 36.8 C Temperature Source Oral Pulse Rate 88 Pulse Rate [Left] 70 70 Pulse Rhythm [Left] Regular Pulse Strength [Left] Normal Respiratory Rate 16 18 18 Respiratory Effort / Characteristics Non-Labored Spontaneous Non-Labored Spontaneous Respiratory Depth Normal Normal Normal Respiratory Pattern Regular Blood Pressure 100/65 Blood Pressure [Right Arm] 112/62 105/72 Blood Pressure Mean 76 Blood Pressure Mean [Right Arm] 78 83 Blood Pressure Position Sitting Blood Pressure Position [Right Arm] Lying Lying Pulse Oximetry 97 97 97 Oxygen Delivery Method Room Air Nasal Cannula Room Air Sepsis Recent Fever Within 48 Hours No Sepsis New/Unexplained Change in Mental Status No Sepsis Action Taken by Nursing No Action Required 12/06/19 13:04 Temperature Temperature Source Pulse Rate Pulse Rate [Left] 75 Pulse Rhythm [Left] Pulse Strength [Left] Respiratory Rate 18 Respiratory Effort / Characteristics Non-Labored Spontaneous Respiratory Depth Normal Respiratory Pattern Blood Pressure Blood Pressure [Right Arm] 103/67 Blood Pressure Mean Blood Pressure Mean [Right Arm] 79 Blood Pressure Position Blood Pressure Position [Right Arm] Lying Pulse Oximetry 96 Oxygen Delivery Method Room Air Sepsis Recent Fever Within 48 Hours Sepsis New/Unexplained Change in Mental Status Sepsis Action Taken by Nursing Laboratory Data Result diagrams: 12/06/19 08:20 12/06/19 08:20 Lab Results 12/06/19 12/06/19 12/06/19 Range/Units 08:20 08:20 10:00 WBC 7.82 (4.8-10.8) K/uL RBC 4.44 (4.2-5.4) M/uL Hgb 14.1 (12.0-16.0) g/dL Hct 41.9 (37-47) % MCV 94.4 (80-100) fL MCH 31.8 (25-34) pg MCHC 33.7 (32-36) g/dL RDW Std Deviation 47.8 H (36.4-46.3) fL RDW Coeff of Kave[place] 13.9 (11.5-14.5) % Plt Count 394 (130-400) K/uL MPV 9.8 (7.4-10.4) fL Immature Gran % (Auto) 0.1 % Neut % (Auto) 77.3 % Lymph % (Auto) 13.0 % [place] % (Auto) 6.3 % Eos % (Auto) 2.9 % Baso % (Auto) 0.4 % Neut # (Auto) 6.04 (1.4-6.5) K/uL Lymph # (Auto) 1.02 L (1.2-3.4) K/uL [place] # (Auto) 0.49 (0.11-0.59) K/uL Eos # (Auto) 0.23 (0-0.5) K/uL Baso # (Auto) 0.03 (0-0.2) K/uL Immature Gran # (Auto) 0.01 (0.00-0.02) K/uL Sodium 142 (136-145) mmol/L Potassium 3.7 (3.5-5.1) mmol/L Chloride 108 H (98-107) mmol/L Carbon Dioxide 27 (21-32) mmol/L Anion Gap 6.0 (3-11) BUN 32 H (7-18) mg/dl Creatinine 0.69 (0.6-1.2) mg/dl Est Cr Clr Drug Dosing 75.1 ml/min Est GFR ( Amer) 107.4 Est GFR (Non-Af Amer) 92.6 BUN/Creatinine Ratio 46.5 H (10-20) Glucose 111 H (70-99) mg/dl Calcium 10.0 (8.5-10.1) mg/dl Total Bilirubin 0.4 (0.2-1) mg/dl AST 43 H (15-37) U/L ALT 154 H (12-78) U/L Alkaline Phosphatase 106 (45-117) U/L Total Protein 7.4 (6.4-8.2) gm/dl Albumin 3.7 (3.4-5.0) gm/dl Globulin 3.7 (2.5-4.0) gm/dl Albumin/Globulin Ratio 1.0 (0.9-2) Lipase 87 (73-393) U/L Urine Color Yellow Urine Appearance Cloudy A (Clear) Urine pH 8.0 H (4.5-7.5) Ur Specific [place] 1.022 (1.000-1.030) Urine Protein Negative (Negative) Urine Glucose (UA) Negative (Negative) Urine Ketones Negative (Negative) Urine Blood Negative (Negative) Urine Nitrite Negative (Negative) Urine Bilirubin Negative (Negative) Urine Urobilinogen Negative (Negative) Ur Leukocyte Esterase Negative (Negative) Urine WBC (Auto) 1-5 (0-5) /hpf Urine RBC (Auto) 0-4 (0-4) /hpf U Hyaline Cast (Auto) 1-5 (0-5) /lpf U Epithel Cells (Auto) 5-10 H (0-5) /lpf Urine Bacteria (Auto) Negative (Negative) Administered Medications Discontinued Medications Sodium Chloride (Nss 1000ml) 1,000 mls @ 999 mls/hr IV .Q1H1M ONE Stop: 12/06/19 08:57 Last Infusion: 12/06/19 09:48 Dose: 0 mls/hr Documented by: [id number] Admin: 12/06/19 08:29 Dose: 999 mls/hr Documented by: [id number] Ioversol (Ioversol 100ml) 92 ml IV ONCE ONE Stop: 12/06/19 09:35 Last Admin: 12/06/19 09:34 Dose: 92 ml Documented by: [id number] Ketorolac Tromethamine (Ketorolac Tromethamine 15 Mg/Ml Vial) 15 mg IV NOW STA Stop: 12/06/19 07:58 Last Admin: 12/06/19 08:29 Dose: 15 mg Documented by: [id number] Discharge Plan Visit Data Chief Complaint: Abdominal Pain Stated Complaint: ABDOMINAL PAIN ED Provider: Logan Roldan ED Midlevel Provider: Oly Lui Discharge Problem: SBO (small bowel obstruction) Patient Disposition: Admitted As Inpatient Condition: Good Discharge Instructions Interventions: ED Discharge Assessment Last Done: 12/06/19 14:45
[2019-12-06 08:39] LABS: Basophils # (auto) 0.03 K/uL (0-0.2); Basophils % (auto) 0.4 %; Eosinophils # (auto) 0.23 K/uL (0-0.5); Eosinophils % (auto) 2.9 %; Hematocrit (blood only) 41.9 % (37-47); Hemoglobin 14.1 g/dL (12.0-16.0); Immature Granulocytes # (auto) 0.01 K/uL (0.00-0.02); Immature Granulocytes % (auto) 0.1 %; Lymphocytes # (auto) 1.02 K/uL (1.2-3.4); Mean Corpuscular Hemoglobin 31.8 pg (25-34); Mean Corpuscular Hgb Conc 33.7 g/dL (32-36); Mean Corpuscular Volume 94.4 fL (80-100); Mean Platelet Volume 9.8 fL (7.4-10.4); Monocytes # (auto) 0.49 K/uL (0.11-0.59); Monocytes % (auto) 6.3 %; Neutrophils # (auto) 6.04 K/uL (1.4-6.5); Neutrophils % (auto) 77.3 %; Platelet Count 394 K/uL (130-400); RDW Coefficient of Variation 13.9 % (11.5-14.5); RDW Standard Deviation 47.8 fL (36.4-46.3); Red Blood Count 4.44 M/uL (4.2-5.4); White Blood Count 7.82 K/uL (4.8-10.8)
[2019-12-06 08:55] LABS: Albumin Level 3.7 gm/dl (3.4-5.0); BUN Creatinine Ratio 46.5 (10-20); Creatinine Clr Calc Pharmacy 75.1 ml/min; Est GFR (African American) 107.4; Est GFR (Non-African American) 92.6; Potassium 3.7 mmol/L (3.5-5.1)
[2019-12-06 09:00] LABS: Bilirubin,Total 0.4 mg/dl (0.2-1); Globulin 3.7 gm/dl (2.5-4.0); Total Protein 7.4 gm/dl (6.4-8.2)
[2019-12-06] MEDS ORDERED: IOVERSOL 100ml IV ONE (09:34)
--- NOTE | 2019-12-06 10:01 | CT Scan Report ---
ABDOMEN AND PELVIS CT WITH IV CONTRAST CT DOSE: 504.69 mGy.cm HISTORY: diffuse abd pain, recent hernia repair surgery, small bowel obstruction. TECHNIQUE: Multiaxial CT images of the abdomen and pelvis were performed following the use of intrave nous contrast. A dose lowering technique was utilized adhering to the principles of ALARA. COMPARISON STUDY: Abdomen and pelvis CT 11/29/2019. FINDINGS: Bibasilar linear densities favor subsegmental atelectasis. No pneumoperitoneum. No pneumato sis. Bilateral L5 spondylolysis. No suspicious lytic or blastic osseous lesions. Partially peripheral enhancing fluid within the right proximal inguinal canal measuring 4.7 x 3.1. This is stable to slig htly decreased in size compared to the prior study. There is mild surrounding infiltration at this lo cation which is also unchanged. This results in mass effect without thrombosis at the right common fe moral vein. The bladder is unremarkable. The uterus surgically absent. Hysterectomy with evidence for prior sacropexy at the vaginal cuff. Bowel wall edema within the small bowel has improved. Multiple dilated loops of fluid-filled small bowel persists. There is a focal transition point seen within the left anterior abdomen on images 250 through 253. This is consistent with a persistent small bowel ob struction. Trace pelvic free fluid with mild partial enhancement within the deep pelvis. This has imp roved in the interval. This currently measures 5.2 x 3.7 cm, previously measuring 6.7 x 3.9 cm. No re troperitoneal lymphadenopathy. The liver, pancreas, gallbladder, and adrenal glands unremarkable. The re are few small hypodense lesions within the spleen and kidneys. These favor cysts. No hydronephrosi s. There is a 4 mm stone within the left kidney IMPRESSION: 1. Status post right inguinal hernia repair. The small pocket of fluid within the proximal right ingu inal canal is stable to slightly decreased in size. Therefore, this favors a postoperative seroma at this time. 2. Bowel wall edema within the small bowel has significantly improved. 3. Focal transition point within the small bowel within the left anterior/mid abdomen with proximal d ilatation. This is consistent with a persistent small bowel obstruction. This is similar to the prior study. 4. Decrease in size in the 5.2 x 3.7 cm fluid collection within the deep pelvis which demonstrates pa rtial peripheral enhancement. This favors resolving postoperative fluid collection. Secondary infecti on would be impossible to exclude by imaging. 5. Left-sided nephrolithiasis. No hydronephrosis. 6. Additional findings as described above. ACT 112: Negative or not required by law. Electronically signed by: Juan Chong M.D. 12/06/2019 10:00 AM
[2019-12-06 10:07] LABS: Appearance Urine Cloudy (Clear); Bacteria Urine Automated Negative (Negative); Bilirubin Urine Negative (Negative); Blood Urine Negative (Negative); Color Urine Yellow; Glucose Urine UA Negative (Negative); Ketones Urine Negative (Negative); Leukocyte Esterase Urine Negative (Negative); Nitrite Urine Negative (Negative); Protein Urine Negative (Negative); RBC Urine Automated 0-4 /hpf (0-4); Specific Gravity Urine 1.022 (1.000-1.030); Urobilinogen Urine Negative (Negative)
--- NOTE | 2019-12-06 13:20 | History & Physical Report ---
Date of Service December 06, 2019 Assessment & Plan (1) SBO (small bowel obstruction): This patient is being readmitted with possible small bowel obstruction although she has now begun to pass flatus. Her pain has not yet completely resolved but is much improved. She has no abdominal distention at the present time. CT scan findings are noted. I would put her in the hospital overnight for an upper GI small bowel follow-through study to confirm or deny bowel obstruction. She has no nausea or vomiting so I think she will tolerate that. Will await the result. Should be kept n.p.o. with IV hydration. History of Present Illness Chief Complaint: Abdominal pain Primary Care Provider: Larisa Trevino This is a 64-year-old female who presented to the emergency room with a complaint of crampy abdominal pain that began yesterdaShe underwent repair of an incarcerated right femoral hernia back on 11/16. She was discharged from the hospital but then returned on 11/[address] scan what looked like a small bowel obstruction. She was treated conservatively with an NG tube and it resolved. She was discharged 3 days ago. On Friday she felt pretty well however yesterday she began to develop the crampy abdominal pain located throughout her abdomen. It was intermittent and episodic. She took a nap and when she awoke felt better. She then ate supper and developed the pain again. She did not pass any flatus yesterday. She did have a bowel movement yesterday morning. It was a very hard bowel movement but there was no melena or hematochezia. She has had no nausea or vomiting with this abdominal discomfort. Her temperature is been normal. She has not had any dysuria or hematuria. Since arriving in the emergency room she has begun to pass flatus. Yesterday she stated that she felt bloated however that seems to have resolved. Allergies Allergy/AdvReac Type Severity Reaction Status Date / Time Lactobacillus acidophilus Allergy Severe Hives Unverified 12/06/19 07:29 [From Floranex] Lactobacillus bulgaricus Allergy Severe Hives Unverified 12/06/19 07:29 [From Floranex] itraconazole Allergy Unknown HIVES Verified 12/06/19 07:29 Home Medications Home Medications Medication Instructions Recorded Confirmed Type Probiotic 0 cell PO QAM 11/17/19 12/06/19 History bupropion HCl 150 mg PO DAILY 11/17/19 12/06/19 History furosemide 20 mg PO UD PRN 11/17/19 12/06/19 History loratadine 10 mg PO HS PRN 11/17/19 12/06/19 History melatonin 5 mg PO HS PRN 11/17/19 12/06/19 History montelukast 10 mg PO HS 11/17/19 12/06/19 History omeprazole 20 mg PO DAILY 11/17/19 12/06/19 History potassium chloride 10 meq PO UD PRN 11/17/19 12/06/19 History amoxicillin-pot clavulanate 1 tab PO BID #14 tab 12/03/19 12/06/19 Rx [Augmentin] hydrocodone-acetaminophen [[place]] 1 - 2 tab PO Q6H PRN 12/06/19 12/06/19 History Past Med/Surg History Medical History (Updated 12/06/19 @ 13:31 by Camron Johnson MD) GERD (gastroesophageal reflux disease) Incarcerated hernia Small bowel obstruction Surgical History (Updated 12/06/19 @ 13:28 by Camron Johnson MD) History of bladder suspension procedure History of femoral hernia repair (11/17/19) Diagnostic Laparoscopy, Convert to Open Reducation of Small Bowel Obstruction; Repair of Incarcerated Right Femoral Hernia with Mesh Dr. Price 11/17/2019 History of foot operation History of hysterectomy Hx of tonsillectomy S/P right inguinal hernia repair Social History Smoking Status: Never smoker Second Hand Exposure: No; Hx Alcohol Use: Yes Alcohol type: beer, wine and hard liquor Hx Substance Use: No Preferred Language: Japanese Communication Ability: Effective Alarm Security Or Surveillance Monitor Required: No Beliefs That Will Affect Care: None Current Living Situation: Spouse Other Information That Helps Us Care for You: No Feels Safe at Home: Yes Safety Concerns: Feels Safe At This Time Assistive Devices: Glasses Review of Systems Review of Systems: All systems reviewed & are unremarkable except as noted in HPI & below Physical Exam Constitutional: well developed and well nourished; no acute distress Neck: trachea midline Respiratory: normal respiratory effort, lungs clear to auscultation Cardiovascular: Rate/Rhythm: regular rate and regular rhythm Gastrointestinal (Abdomen): Inspection/Auscultation: normal bowel sounds; abdomen not distended Percussion/Palpation: + abdomen tender (Mild diffuse) and abdomen soft; no abdominal mass Skin: no rashes, warm and dry Lymphatic: no cervical lymphadenopathy Results & Data Results & Data ([facility]) Vital Signs (Past 12 Hours) Vital Signs Temp Pulse Pulse Resp BP BP Pulse Ox 12/06/19 13:04 75 18 103/67 96 12/06/19 11:18 70 18 105/72 97 12/06/19 09:50 70 18 112/62 97 12/06/19 06:53 36.8 C 88 16 100/65 97 Laboratory Results 12/06/19 12/06/19 12/06/19 Range/Units 10:00 08:20 08:20 WBC 7.82 (4.8-10.8) K/uL RBC 4.44 (4.2-5.4) M/uL Hgb 14.1 (12.0-16.0) g/dL Hct 41.9 (37-47) % MCV 94.4 (80-100) fL MCH 31.8 (25-34) pg MCHC 33.7 (32-36) g/dL RDW Std Deviation 47.8 H (36.4-46.3) fL RDW Coeff of Kaveh 13.9 (11.5-14.5) % Plt Count 394 (130-400) K/uL MPV 9.8 (7.4-10.4) fL Immature Gran % (Auto) 0.1 % Neut % (Auto) 77.3 % Lymph % (Auto) 13.0 % Wolfe % (Auto) 6.3 % Eos % (Auto) 2.9 % Baso % (Auto) 0.4 % Neut # (Auto) 6.04 (1.4-6.5) K/uL Lymph # (Auto) 1.02 L (1.2-3.4) K/uL Wolfe # (Auto) 0.49 (0.11-0.59) K/uL Eos # (Auto) 0.23 (0-0.5) K/uL Baso # (Auto) 0.03 (0-0.2) K/uL Immature Gran # (Auto) 0.01 (0.00-0.02) K/uL Sodium 142 (136-145) mmol/L Potassium 3.7 (3.5-5.1) mmol/L Chloride 108 H (98-107) mmol/L Carbon Dioxide 27 (21-32) mmol/L Anion Gap 6.0 (3-11) BUN 32 H (7-18) mg/dl Creatinine 0.69 (0.6-1.2) mg/dl Est Cr Clr Drug Dosing 75.1 ml/min Est GFR ( Amer) 107.4 Est GFR (Non-Af Amer) 92.6 BUN/Creatinine Ratio 46.5 H (10-20) Glucose 111 H (70-99) mg/dl Calcium 10.0 (8.5-10.1) mg/dl Total Bilirubin 0.4 (0.2-1) mg/dl AST 43 H (15-37) U/L ALT 154 H (12-78) U/L Alkaline Phosphatase 106 (45-117) U/L Total Protein 7.4 (6.4-8.2) gm/dl Albumin 3.7 (3.4-5.0) gm/dl Globulin 3.7 (2.5-4.0) gm/dl Albumin/Globulin Ratio 1.0 (0.9-2) Lipase 87 (73-393) U/L Urine Color Yellow Urine Appearance Cloudy A (Clear) Urine pH 8.0 H (4.5-7.5) Ur Specific [place] 1.022 (1.000-1.030) Urine Protein Negative (Negative) Urine Glucose (UA) Negative (Negative) Urine Ketones Negative (Negative) Urine Blood Negative (Negative) Urine Nitrite Negative (Negative) Urine Bilirubin Negative (Negative) Urine Urobilinogen Negative (Negative) Ur Leukocyte Esterase Negative (Negative) Urine WBC (Auto) 1-5 (0-5) /hpf Urine RBC (Auto) 0-4 (0-4) /hpf U Hyaline Cast (Auto) 1-5 (0-5) /lpf U Epithel Cells (Auto) 5-10 H (0-5) /lpf Urine Bacteria (Auto) Negative (Negative) Diagnostic Findings ABDOMEN AND PELVIS CT WITH IV CONTRAST CT DOSE: 504.69 mGy.cm HISTORY: diffuse abd pain, recent hernia repair surgery, small bowel obstruction. TECHNIQUE: Multiaxial CT images of the abdomen and pelvis were performed following the use of intravenous contrast. A dose lowering technique was utilized adhering to the principles of ALARA. COMPARISON STUDY: Abdomen and pelvis CT 11/29/2019. FINDINGS: Bibasilar linear densities favor subsegmental atelectasis. No pneumoperitoneum. No pneumatosis. Bilateral L5 spondylolysis. No suspicious lytic or blastic osseous lesions. Partially peripheral enhancing fluid within the right proximal inguinal canal measuring 4.7 x 3.1. This is stable to slightly decreased in size compared to the prior study. There is mild surrounding infiltration at this location which is also unchanged. This results in mass effect without thrombosis at the right common femoral vein. The bladder is unremarkable. The uterus surgically absent. Hysterectomy with evidence for prior sacropexy at the vaginal cuff. Bowel wall edema within the small bowel has improved. Multiple dilated loops of fluid-filled small bowel persists. There is a focal transition point seen within the left anterior abdomen on images 250 through 253. This is consistent with a persistent small bowel obstruction. Trace pelvic free fluid with mild partial enhancement within the deep pelvis. This has improved in the interval. This currently measures 5.2 x 3.7 cm, previously measuring 6.7 x 3.9 cm. No retroperitoneal lymphadenopathy. The liver, pancreas, gallbladder, and adrenal glands unremarkable. There are few small hypodense lesions within the spleen and kidneys. These favor cysts. No hydronephrosis. There is a 4 mm stone within the left kidney IMPRESSION: 1. Status post right inguinal hernia repair. The small pocket of fluid within the proximal right inguinal canal is stable to slightly decreased in size. Therefore, this favors a postoperative seroma at this time. 2. Bowel wall edema within the small bowel has significantly improved. 3. Focal transition point within the small bowel within the left anterior/mid abdomen with proximal dilatation. This is consistent with a persistent small bowel obstruction. This is similar to the prior study. 4. Decrease in size in the 5.2 x 3.7 cm fluid collection within the deep pelvis which demonstrates partial peripheral enhancement. This favors resolving postoperative fluid collection. Secondary infection would be impossible to exclude by imaging. 5. Left-sided nephrolithiasis. No hydronephrosis. 6. Additional findings as described above.
[2019-12-06] MEDS ORDERED: MoRPHine SULFATE 4 MG/ML 1 ML CARP\\VIAL ONE (15:49)
[2019-12-06] MEDS: POTASSIUM CHLORIDE 10 MEQ in SODIUM CHLORIDE 0.9% 1000ML 1,000 ML IV SCH (17:21)
[2019-12-06] MEDS ORDERED: Nursing to Pharmacy Communication SCH (18:00)
[2019-12-06] MEDS: MoRPHine SULFATE 4 MG/ML 1 ML CARP\\VIAL IV PRN ×2 (19:56→23:58)
[2019-12-06] MEDS: ONDANSETRON INJ 2 MG/ML 2 ML VIAL IV PRN (20:32)
[2019-12-06] MEDS: AMOXICILLIN/CLAVULANATE 875 MG TAB PO SCH (21:21)
[2019-12-07] MEDS: POTASSIUM CHLORIDE 10 MEQ in SODIUM CHLORIDE 0.9% 1000ML 1,000 ML IV SCH ×3 (01:51→23:45)
--- NOTE | 2019-12-07 10:24 | Surgery Progress Note ---
Date of Service December 07, 2019 Assessment & Plan (1) SBO (small bowel obstruction): I agree with Dr. Johnson's plan of small bowel follow-through. She has not had any imaging with oral contrast since the surgery. I suppose she could have developed a stricture at the ischemic area small bowel versus a small bowel adhesion. Or it could just be a functional obstruction from inflammation. If there is a true small bowel obstruction we would likely proceed with a laparoscopy either tonight or tomorrow. She is currently comfortable. We discussed possibilities and options. Will discuss with her after the small bowel follow-through. I did review her lab work as well as a CT scan. The fluid collections are improving and currently no evidence of an intra-abdominal abscess. Admission and Anticipated Discharge Date Admission Date: December 06, 2019 Subjective pt seen. discussed with Dr. Johnson last night. went home friday doing well...friday had a littel pain which worsened over the course of Friday...came in Friday AM with upper abdominal pain. did not have any emesis since d/c and she did have 1 BM. Physical Exam Physical Exam: Alert. No acute distress Abdomen is soft but slightly distended. Mild upper abdominal tenderness. No peritoneal signs. Patient examined in radiology and I therefore could not evaluate her incision sites. Results & Data ([facility]) Vital Signs (Past 12 Hours) Vital Signs Temp Pulse Resp BP Pulse Ox 12/07/19 09:43 37 C 63 18 107/67 96 12/06/19 23:45 36.5 C 54 L 15 95/60 L 94 PG Care Time/CCT Total # of Minutes Spent Total Time Spent with Patient: Total time spent is greater than 50% in coordination of care (as documented) at patient's floor/unit and/or counseling patient: Coding Level of Care Code None Diagnoses SBO (small bowel obstruction) K56.609
[2019-12-07] MEDS: AMOXICILLIN/CLAVULANATE 875 MG TAB PO SCH ×2 (11:10→17:57)
[2019-12-07] MEDS: PANTOprazole 40 MG TAB PO SCH ×2 (11:10→14:00)
[2019-12-07] MEDS: BuPROPion XL 150 MG TABCR PO SCH ×2 (11:10→14:00)
--- NOTE | 2019-12-07 13:22 | Fluoroscopy Report ---
Small bowel follow through CLINICAL HISTORY: Possible small bowel obstruction. Follow-up. COMPARISON STUDY: Abdomen and pelvis CT 11/28/2019. FLUOROSCOPY TIME: 0 seconds.. FINDINGS: Envelope Fold Operator image demonstrates multiple mildly dilated gas-filled loops of small bowel seen throu ghout the abdomen. There is gas and stool within the colon. The patient swallowed contrast without di fficulty. Multiple overhead images were obtained. Contrast reached the cecum at 3 hours and 50 minute s. Multiple mildly dilated contrast filled loops of small bowel seen throughout the abdomen. No evide nce for bowel obstruction at this time. No pneumoperitoneum or pneumatosis. IMPRESSION: Multiple mildly dilated loops of small bowel seen throughout the abdomen. No definite transition poin t. Contrast reached the cecum at 3 hours and 50 minutes. Therefore, these findings favor a postoperat mike ileus rather than an obstruction. ACT 112: Negative or not required by law. Electronically signed by: Juan Chong M.D. 12/07/2019 1:21 PM
[2019-12-07] MEDS ORDERED: ACETAMINOPHEN 325 MG TAB PO PRN (14:18)
[2019-12-07] MEDS: SIMETHICONE 80 MG CHEW PO PRN ×2 (17:59→23:45)
[2019-12-07] MEDS: ONDANSETRON INJ 2 MG/ML 2 ML VIAL IV PRN (22:33)
[2019-12-07] MEDS: MoRPHine SULFATE 4 MG/ML 1 ML CARP\\VIAL IV PRN (22:34)
--- NOTE | 2019-12-08 07:37 | Surgery Progress Note ---
Date of Service December 08, 2019 Assessment & Plan (1) SBO (small bowel obstruction): Yesterday's SBFT reviewed; multiple dilated loops of small bowel without transition point, contrast reached the cecum, c/w ileus Since study she has had multiple loose BM's She has tolerated clear liquids, feeling hungry for more Her abdominal pain is improving, on exam abd. is soft and non-distended Will consider advancing diet today as above. feeling much better today. no n/v. abdominal pain has resolved SBFT reviewed ok for d/c. instructions given. f/u next weel. soft/bland/liquidy diet. Admission and Anticipated Discharge Date Admission Date: December 06, 2019 Subjective Patient states she had a good night and slept well. She has tolerated a clear liquid diet without nausea/vomiting. Since her SBFT she has been having multiple loose stools. She says she feels some "rumblings" in her abdomen and that she still has some mild crampy pain, but it is overall improved. Is hungry to try more than clears. Physical Exam Physical Exam: awake/alert Respiratory: normal respiratory effort Gastrointestinal (Abdomen): Inspection/Auscultation: abdomen not distended Percussion/Palpation: abdomen soft; abdomen nontender Results & Data ([facility]) Vital Signs (Past 12 Hours) Vital Signs Temp Pulse Resp BP Pulse Ox 12/07/19 23:44 36.7 C 60 14 88/47 L 96 PG Care Time/CCT Total # of Minutes Spent Total Time Spent with Patient: Total time spent is greater than 50% in coordination of care (as documented) at patient's floor/unit and/or counseling patient: Coding Level of Care Code None Diagnoses SBO (small bowel obstruction) K56.609
--- NOTE | 2019-12-08 07:56 | XRay Report ---
KUB HISTORY: Postop. Small bowel obstruction. eval progress of contrast COMPARISON: Small bowel follow-through 12/07/2019. FINDINGS: All of the oral contrast is now seen within the colon. There are no distended loops of smal l bowel. No renal calculi. No ureteral calculi. No pneumoperitoneum or pneumatosis. IMPRESSION: No dilated loops of small bowel to suggest an obstruction. The oral contrast is located throughout th e colon. ACT 112: Negative or not required by law. Electronically signed by: Juan Chong M.D. 12/08/2019 7:55 AM
[2019-12-08] MEDS: AMOXICILLIN/CLAVULANATE 875 MG TAB PO SCH (08:58)
[2019-12-08] MEDS: PANTOprazole 40 MG TAB PO SCH (08:59)
[2019-12-08] MEDS: BuPROPion XL 150 MG TABCR PO SCH (08:59)
[2019-12-08] MEDS: POTASSIUM CHLORIDE 10 MEQ in SODIUM CHLORIDE 0.9% 1000ML 1,000 ML IV SCH (09:51)
--- NOTE | 2019-12-09 11:48 | Discharge Summary ---
Date of Service December 09, 2019 Admission HPI Per Admitting Provider This is a 64-year-old female who presented to the emergency room with a complaint of crampy abdominal pain that began yesterdaShe underwent repair of an incarcerated right femoral hernia back on 11/16. She was discharged from the hospital but then returned on 11/[address] scan what looked like a small bowel obstruction. She was treated conservatively with an NG tube and it resolved. She was discharged 3 days ago. On Friday she felt pretty well however yesterday she began to develop the crampy abdominal pain located throughout her abdomen. It was intermittent and episodic. She took a nap and when she awoke felt better. She then ate supper and developed the pain again. She did not pass any flatus yesterday. She did have a bowel movement yesterday morning. It was a very hard bowel movement but there was no melena or hematochezia. She has had no nausea or vomiting with this abdominal discomfort. Her temperature is been normal. She has not had any dysuria or hematuria. Since arriving in the emergency room she has begun to pass flatus. Yesterday she stated that she felt bloated however that seems to have resolved. Principal Diagnosis small bowel obstruction Discharge Exam awake/alert Gastrointestinal (Abdomen) Inspection/Auscultation: abdomen not distended Percussion/Palpation: abdomen soft; abdomen nontender Discharge Data Allergies Allergy/AdvReac Type Severity Reaction Status Date / Time Lactobacillus acidophilus Allergy Severe Hives Unverified 12/06/19 07:29 [From Floranex] Lactobacillus bulgaricus Allergy Severe Hives Unverified 12/06/19 07:29 [From Floranex] itraconazole Allergy Unknown HIVES Verified 12/06/19 07:29 Consultations 12/06/19 13:44 ED Decision to Admit Stat Ordered Studies 12/06/19 07:57 CT abd pelvis IV con only Stat 12/07/19 08:00 FL small bowel follow through Stat Hospital Course (1) SBO (small bowel obstruction): This is a 64y F who recently underwent a laparoscopic converted to open reduction of small bowel obstruction and right inguinal hernia repair on 11/17/19 who came to the ED on 12/06/19 with complaints of abdominal pain. She underwent a CT scan that showed concern for a small bowel obstruction. She was admitted and kept NPO. No NGT was placed as patient denied nausea/vomiting. On 12/06 she underwent a small bowel follow through that showed some dilated small bowel, but no transition point, with contrast reaching the cecum, consistent with an ileus. She was feeling better symptomatically and she was given a clear liquid diet. On 12/07 she was having + bowel movements, abdominal pain was improved, and she was tolerating a liquid diet. Abdomen soft, non distended, non tender. Patient feeling well enough to be discharged to home. She was instructed to continue a bland/soft food diet that's easily digested with plans to follow up in clinic within 1 week. Total Time Total Time Spent Total Time Spent (In Minutes): 5 Discharge Plan Discharge Items Patient Disposition: Home - Self-Care Reason For Visit: ABDOMINAL PAIN Discharge Diagnosis: small bowel obstruction Condition on Discharge: Good Activity: Per Instructions section Lifting Comment: no more than 20 pounds Bathing Comment: may shower; no soaking in tubs/pools Exercise/Sports: Wait until after follow-up appointment Driving/Machine Use: do not resume driving while taking narcotics for pain Non-emergency contact: Surgeon Call non-emergency contact if: you have any medication questions, your symptoms worsen, your pain is not controlled, your pain is worsening, your pain is unusual for you, you have a fever, your temperature is above 101.5, your wound has increased redness and your wound has increased drainage Follow-up/Referrals: Donovan Price DO [Surgeon] - 12/14/19 10:00 am () Larisa Trevino PA-C [Primary Care Provider] - Diet: Low Fiber Diet Comment: please adhere to a diet that is easy to digest; soft/bland foods Addtl Attending Provider Instructions: Pending Studies at Discharge: No Stand-Alone Forms: My [employer], Smoking Cessation Medications and DC Order Prescriptions: New hydrocodone-acetaminophen [[place]] 5-325 mg tablet 1 - 2 tab PO .q4-6h PRN (Reason: pain, for initial therapy, max 6 tabs per day) Qty: 10 RF: 0 ondansetron HCl [Zofran] 4 mg tablet 4 mg PO Q8H PRN (Reason: nausea and vomiting) 4 Days Qty: 10 RF: 0 Continued potassium chloride 10 mEq capsule, extended release 10 meq PO UD PRN (Reason: See Comment) RF: 0 omeprazole 20 mg capsule,delayed release(DR/EC) 20 mg PO DAILY RF: 0 montelukast 10 mg tablet 10 mg PO HS RF: 0 furosemide 20 mg tablet 20 mg PO UD PRN (Reason: Edema) RF: 0 loratadine 10 mg Tablet 10 mg PO HS PRN (Reason: Allergy Symptoms) RF: 0 bupropion HCl 150 mg tablet extended release 24 hr 150 mg PO DAILY RF: 0 melatonin 5 mg Tablet 5 mg PO HS PRN (Reason: Sleep) RF: 0 Probiotic 10 billion cell Capsule 0 cell PO QAM RF: 0 amoxicillin-pot clavulanate [Augmentin] 875-125 mg tablet 1 tab PO BID Qty: 14 RF: 0 hydrocodone-acetaminophen [[place]] 5-325 mg tablet 1 - 2 tab PO Q6H PRN (Reason: pain, for initial therapy, max 6 tabs per day) RF: 0 Discharge Orders: Discharge Order (Routine); Ordered 12/08/19 Ordered By: Saniya Espinoza Admission Data Admit Date/Time: 12/06/19 13:32 Attending Provider: Camron Johnson Admit Provider: Camron Johnson Primary Care Provider: Larisa Trevino Other Providers: Camron Johnson Other Interventions: Discharge Summary Assessment (RN) Last Done: 12/08/19 09:49 Coding Level of Care Code D/C Day Management <30 mins Diagnoses SBO (small bowel obstruction) K56.609
== END 2019-12-08 10:45 | disposition home or self-care (01) ==
LOC: ED 06:45 → 3W 06:45